=== PATIENT | female | born 1945 | race Caucasian/White ===

== ENCOUNTER 2017-09-02 17:39 | Inpatient (IN) | payer MEDICARE ==
[~2017-09-02] VITALS: Ht 167.6 cm; Wt 44.5 kg
[2017-09-02] VITALS (9 sets, daily range): BP systolic 131–178; BP diastolic 64–93; PULSE 116–133; RESP 18–25; TEMP 97.7–98.4; O2SAT 96–100
[~2017-09-02 17:39] MED LIST: ALBU1AER INH; ALPR0.5T3 PO; B COTAB3 PO; CEFT250T8 PO; DUONSOL2 NEB; FLUO10TA PO; LORT5TAB PO; LORT7.5T3 PO; MAGN250T13 PO; NITR0.4S SL; ROSU10 PO; SYMB80AE INH; TAB-TAB PO; THEO300T11 PO; Z.0.OXYGEN INH
[2017-09-02] MEDS ORDERED: PROPOFOL 1000 MG/100 ML INJ 100 ML ONE (17:45)
[2017-09-02] MEDS ORDERED: SENNOSIDES 8.6 MG TAB PO PRN (18:15)
[2017-09-02] MEDS ORDERED: ETOMIDATE 20 MG/10 ML VIAL IV PUSH ONE (18:15)
[2017-09-02] MEDS ORDERED: CHLORHEXIDINE GLUCONATE 2 % 1 PACK (2 CLOTHS) TOP PRN (18:15)
[2017-09-02] MEDS ORDERED: BISACODYL 10 MG SUPP RECTAL PRN (18:15)
[2017-09-02] MEDS ORDERED: PROPOFOL 1000 MG/100 ML INJ 100 ML IV PRN ×3 (18:15)
[2017-09-02] MEDS ORDERED: MISCELLANEOUS NURSING INFORMATION XX SCH (18:15)
[2017-09-02] MEDS ORDERED: SODIUM CHLORIDE 0.9% FLUSH 10 ML FLUSH IV FLUSH PRN ×2 (18:15)
[2017-09-02] MEDS ORDERED: SUCCINYLCHOLINE CHLORIDE 100 MG/5 ML SYRINGE IV PUSH ONE (18:15)
[2017-09-02] MEDS ORDERED: MAGNESIUM HYDROXIDE SUSP 30 ML CUP PO PRN (18:15)
[2017-09-02] MEDS ORDERED: LACTULOSE SYRUP 20 GM/30 ML CUP PO PRN (18:15)
[2017-09-02] MEDS ORDERED: methylPREDNISolone SOD SUCC 125 MG/2 ML VIAL IV PUSH ONE (18:30)
--- NOTE | 2017-09-02 18:40 | PD ---
HPI Chief Complaint: respiratory distress Time Seen by Provider: 18:02 Travel History International Travel<30 days: No Contact w/Intl Traveler<30days: No Traveled to known affect area: No History of Present Illness HPI 71-year-old female came to the emergency room with history of shortness of breath that's progressively worsening. Patient is from a [facility]. She has history of COPD and is progressively worsening for unknown amount of time. By the time she arrived patient was unresponsive. As per EMS they were unsuccessful in getting an IV line in her. Patient was in no condition to give any meaningful history. She is a full code I was told. [facility] Past Medical History Narrative Medical List of her past medical, surgical, social and family history is reviewed from the nursing note. Hx Anticoagulant Therapy: No Cancer: No Cardiovascular Problems: No Chemotherapy: No COPD: Yes Cerebrovascular Accident: No Diabetes: No Hepatitis: No Hiatal Hernia: No Respiratory: Yes (COPD) Thyroid Disease: No Past Surgical History Abdominal Surgery: Yes ([employer] HERNIA REP.) Hysterectomy: No Neurologic Surgery: Yes (THORACIC LAMI) Social History Alcohol Use: No Tobacco Use: No Substance Use: No Allergies-Medications (Allergen,Severity, Reaction): Coded Allergies: edilia (Verified Allergy, Severe, HIVES, 09/02/17) penicillin G (Verified Allergy, Severe, RASH, 09/02/17) prednisone (Verified Adverse Reaction, Severe, TRIGGERS BIPOLAR, 09/02/17) 09/02/17: Per pt's SO, pt has taken prednisone multiple times including just recently. It makes her act " a little bit bipolar but nothing too bad.' Comments List of her allergies reviewed from the nursing note. Reported Meds & Prescriptions Reported Meds & Active Scripts Active Reported Ceftin (Cefuroxime Axetil) 250 Mg Tab 250 Mg PO DAILY Lortab 7.5/500 (Acetaminophen/Hydrocodone Bitart) Tab 1 Tab PO Q3HPRN FOR PAIN Lortab 7.5/500 (Acetaminophen/Hydrocodone Bitart) Tab 1 Tab PO Q3HPRN FOR PAIN Ceftin (Cefuroxime Axetil) 250 Mg Tab 250 Mg PO QID Oxygen (O2) (Miscellaneous Medication) Inha 2.5 L INH 24/7 Nitrostat (Nitroglycerin) 0.4 Mg Subl 0.4 Mg SL PRN 1 TAB SL EVERY 5 MINS X 3 PRN CHEST PAIN B Complex (Vitamin B Complex) Tab 1 Cap PO DAILY Magnesium 250 Mg Tab 250 Mg PO BID Multivitamin (Multivitamins) 1 Tab Tab 1 Tab PO DAILY Symbicort (Budesonide/Formoterol Fumarate) 80 Mcg/4.5 Mcg Aer 2 Puff INH BID * SHAKE WELL BEFORE USE * Trevon-Dur (Theophylline) 300 Mg Tabcr 300 Mg PO BID Resp: Albuterol 2.5 Mg/Ipratropium 0.5 Mg (Albuterol/Ipratropium) 1 Amp Nebu 1 Amp NEB QID Proair Hfa (Albuterol Sulfate) 8.5 Gm Aero 2 Puff INH PRN * 2 PUFFS INHALED 15 MINUTES PRIOR TO EXERCISE * * SHAKE WELL BEFORE USE * Crestor (Rosuvastatin Calcium) 10 Mg Tab 10 Mg PO DAILY Lortab 5/500 (Acetaminophen/Hydrocodone Bitart) 5 Mg/500 Mg Tab 1 Tab PO Q8HPRN Alprazolam 0.5 Mg Tab 0.5 Mg PO QID Prozac (Fluoxetine HCl) 10 Mg Tab 10 Mg PO DAILY Narrative Medication List of home medications reviewed from the nursing note. Review of Systems ROS Limitations: Altered Mental Status Except as stated in HPI: all other systems reviewed are Neg Respiratory: Positive: Shortness of Breath Physical Exam Narrative GENERAL: Poorly responsive, in extremis SKIN: Diaphoretic. Multiple large ecchymosis and some skin tear HEAD: Atraumatic. Normocephalic. EYES: Pupils equal and round. No scleral icterus. No injection or drainage. ENT: No nasal bleeding or discharge. Mucous membranes pink and moist. NECK: Trachea midline. No JVD. CARDIOVASCULAR: Regular rate and rhythm. No murmur appreciated. RESPIRATORY: Decreased air entry bilaterally with end expiratory wheeze GASTROINTESTINAL: Abdomen soft, non-tender, nondistended. Hepatic and splenic margins not palpable. MUSCULOSKELETAL: No obvious deformities. No clubbing. No cyanosis. No edema. NEUROLOGICAL: GCS of 8 PSYCHIATRIC: Unable to assess Data Data Last Documented VS Vital Signs Date Time Temp Pulse Resp B/P (MAP) Pulse Ox O2 Delivery O2 Flow Rate FiO2 09/02/17 18:15 100 100 09/02/17 17:57 Nasal Cannula 3 09/02/17 17:45 97.7 133 25 178/93 (121) Orders Orders Propofol 1000 Mg/100 Ml Inj (Diprivan 10 (09/02/17 17:45) Admit To Inpatient (09/02/17 ) Code Status (09/02/17 18:10) Vital Signs (Adult) STEFFEN.Q1H (09/02/17 18:10) Activity Bed Rest (09/02/17 18:10) Elevate Head Of Bed (09/02/17 18:10) Diet Npo (09/02/17 Dinner) Sodium Chlor 0.9% 1000 Ml Inj (Ns 1000 M (09/02/17 18:10) Sodium Chloride 0.9% Flush (Ns Flush) (09/02/17 18:15) Sodium Chloride 0.9% Flush (Ns Flush) (09/02/17 21:00) Famotidine Inj (Pepcid Inj) (09/02/17 21:00) Albuterol-Ipratropium Neb (Duoneb Neb) (09/02/17 20:00) Albuterol-Ipratropium Neb (Duoneb Neb) (09/02/17 18:15) Complete Blood Count With Diff (09/03/17 04:00) Comprehensive Metabolic Panel (09/03/17 04:00) Sputum Culture And Gram Stain (09/02/17 18:10) Chest, Single Ap (09/03/17 ) Flavoring Machine Operator / Telemetry STEFFEN.Q8H (09/02/17 18:10) Enoxaparin Inj (Lovenox Inj) (09/02/17 20:00) Scd Bilateral/Knee High STEFFEN.BID (09/02/17 18:10) Rojas Bilateral/Knee High STEFFEN.QSHIFT (09/02/17 19:00) ^ Initiate Protocol (09/02/17 18:10) Instruction (09/02/17 18:10) Misc Nursing Information (09/02/17 18:15) Chlorhexidine 2% Cloth (Chlorhexidine 2% (09/03/17 04:00) Chlorhexidine 2% Cloth (Chlorhexidine 2% (09/02/17 18:15) Mrsa Pcr Surveillance (09/02/17 18:10) Docusate Sodium-Senna (Tierra-Colace) (09/02/17 21:00) Magnesium Hydroxide Liq (Milk Of Magnesi (09/02/17 18:15) Sennosides (Senokot) (09/02/17 18:15) Bisacodyl Supp (Dulcolax Supp) (09/02/17 18:15) Lactulose Liq (Lactulose Liq) (09/02/17 18:15) Propofol 1000 Mg/100 Ml Inj (Diprivan 10 (09/02/17 18:15) Neurological Rass Scale Q30MX2,Q2HX4,Q4H (09/02/17 18:10) Inpatient Certification (09/02/17 ) Methylprednisolone So Succ Inj (Solumedr (09/02/17 22:00) Levofloxacin 750 Mg Premix Inj (Levaquin (09/02/17 20:00) Elevate Head Of Bed (09/02/17 18:13) Chlorhexidine 0.12% Liq (Peridex 0.12% L (09/02/17 20:00) Resp Ventilation- Volume (09/02/17 ) Restraints Non-Violent STEFFEN.Q3H (09/02/17 18:13) Ventilator Weaning Readiness STEFFEN.DAILY@0800 (09/02/17 18:13) Propofol 1000 Mg/100 Ml Inj (Diprivan 10 (09/02/17 18:15) Neurological Rass Scale Q30MX2,Q2HX4,Q4H (09/02/17 18:13) Electrocardiogram (09/02/17 18:12) Complete Blood Count With Diff (09/02/17 18:12) Comprehensive Metabolic Panel (09/02/17 18:12) Creatine Kinase (Cpk) (09/02/17 18:12) Prothrombin Time / Inr (Pt) (09/02/17 18:12) Troponin I (09/02/17 18:12) Thyroid Stimulating Hormone (09/02/17 18:12) Urinalysis - C+S If Indicated (09/02/17 18:12) Lactic Acid Sepsis Protocol (09/02/17 18:12) Arterial Blood Gas (Abg) (09/02/17 18:12) Blood Culture (09/02/17 18:12) Ct Brain W/O Iv Contrast(Rout) (09/02/17 18:12) Blood Glucose (09/02/17 18:12) Ecg Monitoring (09/02/17 18:12) Iv Access Insert/Monitor (09/02/17 18:12) Oximetry (09/02/17 18:12) Sodium Chloride 0.9% Flush (Ns Flush) (09/02/17 18:15) Succinylcholine Inj (Quelicin Inj) (09/02/17 18:15) Etomidate Inj (Amidate Inj) (09/02/17 18:15) Propofol 1000 Mg/100 Ml Inj (Diprivan 10 (09/02/17 18:15) ^ Infusion (09/02/17 18:12) RASS (09/02/17 18:12) Neurological Rass Scale STEFFEN.Q2H (09/02/17 18:12) Admit Order (Ed Use Only) (09/02/17 18:18) Methylprednisolone So Succ Inj (Solumedr (09/02/17 18:30) Albuterol-Ipratropium Neb (Duoneb Neb) (09/02/17 18:30) Labs Laboratory Tests Test 09/02/17 16:45 White Blood Count 12.9 TH/MM3 Red Blood Count 3.52 MIL/MM3 Hemoglobin 11.5 GM/DL Hematocrit 33.4 % Mean Corpuscular Volume 94.9 FL Mean Corpuscular Hemoglobin 32.7 PG Mean Corpuscular Hemoglobin Concent 34.5 % Red Cell Distribution Width 16.9 % Platelet Count 422 TH/MM3 Mean Platelet Volume 8.2 FL Neutrophils (%) (Auto) 82.0 % Lymphocytes (%) (Auto) 12.6 % Monocytes (%) (Auto) 3.8 % Eosinophils (%) (Auto) 1.2 % Basophils (%) (Auto) 0.4 % Neutrophils # (Auto) 10.6 TH/MM3 Lymphocytes # (Auto) 1.6 TH/MM3 Monocytes # (Auto) 0.5 TH/MM3 Eosinophils # (Auto) 0.1 TH/MM3 Basophils # (Auto) 0.1 TH/MM3 CBC Comment DIFF FINAL Differential Comment Prothrombin Time 10.7 SEC Prothromb Time International Ratio 1.1 RATIO Blood Urea Nitrogen 15 MG/DL Creatinine 0.64 MG/DL Random Glucose 149 MG/DL Total Protein 6.5 GM/DL Albumin 2.6 GM/DL Calcium Level 8.1 MG/DL Alkaline Phosphatase 124 U/L Aspartate Amino Transf (AST/SGOT) 38 U/L Alanine Aminotransferase (ALT/SGPT) 30 U/L Total Bilirubin 0.4 MG/DL Sodium Level 137 MEQ/L Potassium Level 5.5 MEQ/L Chloride Level 102 MEQ/L Carbon Dioxide Level 30.1 MEQ/L Anion Gap 5 MEQ/L Estimat Glomerular Filtration Rate 92 ML/MIN Lactic Acid Level 1.0 mmol/L Total Creatine Kinase 77 U/L Troponin I 0.03 NG/ML Thyroid Stimulating Hormone 3rd Gen 6.440 uIU/ML MDM Medical Decision Making Medical Screen Exam Complete: Yes Emergency Medical Condition: Yes Medical Record Reviewed: Yes Differential Diagnosis Impending respiratory failure, acute COPD exacerbation, pneumonia, CHF Narrative Course 6:38 PM I rapidly made the decision to intubate the patient. Please refer to my procedure note. Patient tolerated the procedure well. I discussed the case with the fermenter operator who has accepted the patient. Awaiting for labs and chest x-ray. Critical Care Narrative Aggregate critical care time was 45 minutes. Time to perform other separately billable procedures was not included in the critical care time. My time did not include minutes spent treating any other patients simultaneously or on activities that did not directly contribute to the patient's treatment. The services I provided to this patient were to treat and/or prevent clinically significant deterioration that could result in: Respiratory distress, impending respiratory failure, ventilator management I provided critical care services requiring my management, as noted below: Chart data review, documentation time, medication orders and management, vital sign assessments/reviewing monitor data, ordering and reviewing lab tests, ordering and interpreting/reviewing x-rays and diagnostic studies, care of the patient and discussion of the patient with the admitting physicians. Procedures Procedure Narrative After the risks and benefits were discussed the following procedure was performed: INTUBATION: The patient was put in optimal position for the procedure. Rapid sequence intubation was initiated by me using 20 milligrams of etomidate IV and 100 milligrams of succinylcholine IV. The patient was intubated with a 7.5 cuffed endotracheal tube. Tube placement was confirmed by visualization of the tube and balloon passing through the cords, capnometry and subsequent chest x-ray. Breath sounds were equal and well aerated bilaterally postintubation. No breath sounds over stomach. Patient tolerated procedure well. EKG Prior to Arrival: No Physician Communication Physician Communication Dr. Nelson Diagnosis Primary Impression: Respiratory failure Qualified Codes: J96.00 - Acute respiratory failure, unspecified whether with hypoxia or hypercapnia Additional Impressions: Acute exacerbation of COPD with asthma Altered mental status Qualified Codes: R40.1 - Stupor Admitting Information Admitting Physician Requests: Randi Bautista MD Sep 02, 2017 18:40
[2017-09-02] MEDS ORDERED: SODIUM CHLOR 0.9% 1000 ML INJ 1,000 ML IV ONE (19:00)
[2017-09-02 19:05] LABS: BLOOD GAS CARBOXYHEMOGLOBIN 0.9 % (0-4); BLOOD GAS HCO3 29 mmol/L (22-26); BLOOD GAS METHEMOGLOBIN 0.7 % (0-2); BLOOD GAS O2 HGB SATURATION 92 % (90-100); BLOOD GAS OXYGEN CONTENT 12.2 Vol % (12.0-20.0); BLOOD GAS PCO2 75 mmHg (38-42); BLOOD GAS PO2 81 mmHG (61-120); BLOOD GAS TOTAL HGB 9.4 G/DL (12.0-16.0)
[2017-09-02 19:06] LABS: CRITICAL VALUE YES; DRAW SITE LT RADIAL; FIO2 100 %; NUMBER OF ARTERIAL PUNCTURES 1; OXYGEN DEVICE VENTILATOR; STAT YES; ULNAR PULSE PRESENT; VENT SETTINGS A/C 14/500/PEEP0/100
[2017-09-02 19:31] LABS: AUTOMATED NEUTROPHIL # 10.6 TH/MM3 (1.8-7.7); BASOPHIL # 0.1 TH/MM3 (0-0.2); BASOPHIL % 0.4 % (0.0-2.0); EOSINOPHIL # 0.1 TH/MM3 (0-0.4); EOSINOPHIL % 1.2 % (0.0-4.0); HEMATOCRIT 33.4 % (35.0-46.0); HEMO FLAGS DIFF FINAL; LYMPH % 12.6 % (9.0-44.0); LYMPHOCYTE # 1.6 TH/MM3 (1.0-4.8); MEAN CELL VOLUME 94.9 FL (80.0-100.0); MEAN CORPUSCULAR HEMOGLOBIN 32.7 PG (27.0-34.0); MEAN CORPUSCULAR HGB CONC 34.5 % (32.0-36.0); MONO % 3.8 % (0.0-8.0); PLATELET COUNT 422 TH/MM3 (150-450); RED BLOOD COUNT 3.52 MIL/MM3 (4.00-5.30); RED CELL DISTRIBUTION WIDTH 16.9 % (11.6-17.2); WHITE BLOOD COUNT 12.9 TH/MM3 (4.0-11.0)
[2017-09-02 19:43] LABS: INTERNATIONAL NORMALIZED RATIO 1.1 RATIO; PROTHROMBIN TIME - PATIENT 10.7 SEC (9.8-11.6)
[2017-09-02] MEDS ORDERED: fentaNYL DRIP 250 ML IV PRN (19:45)
--- NOTE | 2017-09-02 19:49 | HHI.HP ---
HPI Service Critical Care Medicine Primary Care Physician Unknown Admission Diagnosis respiratory failure, COPD exacerbation Diagnosis: Travel History International Travel<30 Days: No Contact w/Intl Traveler <30 Da: No Traveled to Known Affected Are: No History of Present Illness 71-year-old female came to the emergency room with history of shortness of breath that's progressively worsening. Patient is from a shelter. She has history of COPD and is progressively worsening for unknown amount of time. By the time she arrived to emergency department she became unresponsive. She was intubated by ED attending for an airway protection and severe hypoxemia. Review of Systems ROS Unobtainable patient is intubated Past Family Social History Allergies: Coded Allergies: edilia (Verified Allergy, Severe, HIVES, 09/02/17) penicillin G (Verified Allergy, Severe, RASH, 09/02/17) prednisone (Verified Adverse Reaction, Severe, TRIGGERS BIPOLAR, 09/02/17) 09/02/17: Per pt's SO, pt has taken prednisone multiple times including just recently. It makes her act " a little bit bipolar but nothing too bad.' Past Medical History Unobtainable, per medical record to review: COPD: Yes Past Surgical History Abdominal Surgery: Yes ([employer] HERNIA REP.) Neurologic Surgery: Yes (THORACIC LAMI) Reported Medications Reported Meds & Active Scripts Active Reported Ceftin (Cefuroxime Axetil) 250 Mg Tab 250 Mg PO DAILY Lortab 7.5/500 (Acetaminophen/Hydrocodone Bitart) Tab 1 Tab PO Q3HPRN FOR PAIN Lortab 7.5/500 (Acetaminophen/Hydrocodone Bitart) Tab 1 Tab PO Q3HPRN FOR PAIN Ceftin (Cefuroxime Axetil) 250 Mg Tab 250 Mg PO QID Oxygen (O2) (Miscellaneous Medication) Inha 2.5 L INH 24/7 Nitrostat (Nitroglycerin) 0.4 Mg Subl 0.4 Mg SL PRN 1 TAB SL EVERY 5 MINS X 3 PRN CHEST PAIN B Complex (Vitamin B Complex) Tab 1 Cap PO DAILY Magnesium 250 Mg Tab 250 Mg PO BID Multivitamin (Multivitamins) 1 Tab Tab 1 Tab PO DAILY Symbicort (Budesonide/Formoterol Fumarate) 80 Mcg/4.5 Mcg Aer 2 Puff INH BID * SHAKE WELL BEFORE USE * Trevon-Dur (Theophylline) 300 Mg Tabcr 300 Mg PO BID Resp: Albuterol 2.5 Mg/Ipratropium 0.5 Mg (Albuterol/Ipratropium) 1 Amp Nebu 1 Amp NEB QID Proair Hfa (Albuterol Sulfate) 8.5 Gm Aero 2 Puff INH PRN * 2 PUFFS INHALED 15 MINUTES PRIOR TO EXERCISE * * SHAKE WELL BEFORE USE * Crestor (Rosuvastatin Calcium) 10 Mg Tab 10 Mg PO DAILY Lortab 5/500 (Acetaminophen/Hydrocodone Bitart) 5 Mg/500 Mg Tab 1 Tab PO Q8HPRN Alprazolam 0.5 Mg Tab 0.5 Mg PO QID Prozac (Fluoxetine HCl) 10 Mg Tab 10 Mg PO DAILY Active Ordered Medications Current Medications Medications (Trade) Dose Ordered Sig/Joselyn Route PRN Reason Start Time Stop Time Status Last Admin Dose Admin Sodium Chloride 1,000 ml @ 84 mls/hr [id number] IV 09/02/17 18:10 Sodium Chloride (NS Flush) 2 ml UNSCH PRN IV FLUSH FLUSH AFTER USING IV ACCESS 09/02/17 18:15 Sodium Chloride (NS Flush) 2 ml BID IV FLUSH 09/02/17 21:00 Famotidine (Pepcid Inj) 20 mg Q12HR IV PUSH 09/02/17 21:00 Albuterol/ Ipratropium (Duoneb Neb) 1 ampule Q4HR NEB INH 09/02/17 20:00 Albuterol/ Ipratropium (Duoneb Neb) 1 ampule Q2HR NEB PRN INH WHEEZING 09/02/17 18:15 Enoxaparin Sodium (Lovenox Inj) 40 mg Q24H SQ 09/02/17 20:00 Miscellaneous Information 1 [id number] 09/02/17 18:15 Chlorhexidine Gluconate (Chlorhexidine 2% Cloth) 3 pack Taper DAILY@04 TOP 09/03/17 04:00 08/30/18 03:59 Chlorhexidine Gluconate (Chlorhexidine 2% Cloth) 3 pack UNSCH PRN TOP HYGIENIC CARE 09/02/17 18:15 Senna/Docusate Sodium (Tierra-Colace) 1 tab BID PO 09/02/17 21:00 Magnesium Hydroxide (Milk Of Magnesia Liq) 30 ml Q12H PRN PO Mild constipation 09/02/17 18:15 Sennosides (Senokot) 17.2 mg Q12H PRN PO Moderate constipation 09/02/17 18:15 Bisacodyl (Dulcolax Supp) 10 mg DAILY PRN RECTAL SEVERE CONSITIPATION 09/02/17 18:15 Lactulose (Lactulose Liq) 30 ml DAILY PRN PO SEVERE CONSITIPATION 09/02/17 18:15 Propofol 100 ml @ 1.8 mls/hr TITRATE PRN IV SEDATION 09/02/17 18:15 Methylprednisolone Sodium Succinate (SoluMEDROL INJ) 60 mg Q8HR IV PUSH 09/02/17 22:00 Levofloxacin/ Dextrose 150 ml @ 100 mls/hr Q24H IV 09/02/17 20:00 Chlorhexidine Gluconate (Peridex 0.12% Liq) 15 ml BID@08,20 MT 09/02/17 20:00 Midazolam HCl 100 ml @ 2 mls/hr TITRATE PRN IV SEDATION 09/02/17 19:45 09/02/17 19:50 Fentanyl Citrate 250 ml @ 5 mls/hr TITRATE PRN IV SEDATION 09/02/17 19:45 09/02/17 19:49 Family History Unobtainable Social History Social History Alcohol Use: No Tobacco Use: No Substance Use: No Physical Exam Vital Signs Vital Signs Date Time Temp Pulse Resp B/P (MAP) Pulse Ox O2 Delivery O2 Flow Rate FiO2 09/02/17 18:55 97.7 133 18 178/93 (121) 97 09/02/17 18:53 96 100 09/02/17 18:35 100 100 09/02/17 18:15 100 100 09/02/17 18:03 100 100 09/02/17 17:55 100 09/02/17 17:45 97.7 133 25 178/93 (121) 97 Non-Rebreather 15.00 09/02/17 17:45 97 Non-Rebreather 15.00 09/02/17 17:45 133 25 97 Non-Rebreather 15.00 Physical Exam GENERAL: Poorly responsive, sedated and intubated female SKIN: Diaphoretic. Multiple large ecchymosis and some skin tear HEAD: Atraumatic. Normocephalic. EYES: Pupils equal and round. No scleral icterus. No injection or drainage. ENT: No nasal bleeding or discharge. Mucous membranes pink and moist. NECK: Trachea midline. No JVD. CARDIOVASCULAR: Regular rate and rhythm. No murmur appreciated. RESPIRATORY: Decreased air entry bilaterally with end expiratory wheeze GASTROINTESTINAL: Abdomen soft, non-tender, nondistended. Hepatic and splenic margins not palpable. MUSCULOSKELETAL: No obvious deformities. No clubbing. No cyanosis. No edema. NEUROLOGICAL: Sedated and intubated Laboratory Laboratory Tests Test 09/02/17 16:45 09/02/17 18:41 White Blood Count 12.9 Red Blood Count 3.52 Hemoglobin 11.5 Hematocrit 33.4 Mean Corpuscular Volume 94.9 Mean Corpuscular Hemoglobin 32.7 Mean Corpuscular Hemoglobin Concent 34.5 Red Cell Distribution Width 16.9 Platelet Count 422 Mean Platelet Volume 8.2 Neutrophils (%) (Auto) 82.0 Lymphocytes (%) (Auto) 12.6 Monocytes (%) (Auto) 3.8 Eosinophils (%) (Auto) 1.2 Basophils (%) (Auto) 0.4 Neutrophils # (Auto) 10.6 Lymphocytes # (Auto) 1.6 Monocytes # (Auto) 0.5 Eosinophils # (Auto) 0.1 Basophils # (Auto) 0.1 CBC Comment DIFF FINAL Differential Comment Prothrombin Time 10.7 Prothromb Time International Ratio 1.1 Lactic Acid Level 1.0 Blood Gas Puncture Site LT RADIAL Blood Gas Patient Temperature 37.0 Blood Gas HCO3 29 Blood Gas Base Excess 2.0 Blood Gas Oxygen Saturation 92 Arterial Blood pH 7.21 Arterial Blood Partial Pressure CO2 75 Arterial Blood Partial Pressure O2 81 Arterial Blood Oxygen Content 12.2 Arterial Blood Carboxyhemoglobin 0.9 Arterial Blood Methemoglobin 0.7 Blood Gas Hemoglobin 9.4 Oxygen Delivery Device VENTILATOR Blood Gas Ventilator Setting A/C 14/500/PEEP0/100 Blood Gas Inspired Oxygen 100 Result Diagram: 09/02/17 1645 Septic Shock Reassessment Septic shock perfusion: reassessment completed Caprini VTE Risk Assessment Caprini VTE Risk Assessment: Mod/High Risk (score >= 2) Caprini Risk Assessment Model Point Value = 1 Point Value = 2 Point Value = 3 Point Value = 5 Age 41-60 Minor surgery BMI > 25 kg/m2 Swollen legs Varicose veins or History of unexplained or recurrent spontaneous Oral contraceptives or hormone replacement Sepsis (< 1 month) Serious lung disease, including pneumonia (< 1 month) Abnormal pulmonary function Acute myocardial infarction Congestive heart failure (< 1 month) History of inflammatory bowel disease Medical patient at bed rest Age 61-74 Arthroscopic surgery Major open surgery (> 45 min) Laparoscopic surgery (> 45 min) Malignancy Confined to bed (> 72 hours) Immobilizing plaster cast Central venous access Age >= 75 History of VTE Family history of VTE Factor V Leiden Prothrombin [id number] Lupus anticoagulant Anticardiolipin antibodies Elevated serum homocysteine Heparin-induced thrombocytopenia Other congenital or acquired thrombophilia Stroke (< 1 month) Elective arthroplasty Hip, pelvis, or leg fracture Acute spinal cord injury (< 1 month) Prophylaxis Regimen Total Risk Factor Score Risk Level Prophylaxis Regimen 0-1 Low Early ambulation 2 Moderate Order ONE of the following: *Sequential Compression Device (SCD) *Heparin 5000 units SQ BID 3-4 Higher Order ONE of the following medications: *Heparin 5000 units SQ TID *Enoxaparin/Lovenox 40 mg SQ daily (WT < 150 kg, CrCl > 30 mL/min) *Enoxaparin/Lovenox 30 mg SQ daily (WT < 150 kg, CrCl > 10-29 mL/min) *Enoxaparin/Lovenox 30 mg SQ BID (WT < 150 kg, CrCl > 30 mL/min) AND/OR *Sequential Compression Device (SCD) 5 or more Highest Order ONE of the following medications: *Heparin 5000 units SQ TID (Preferred with Epidurals) *Enoxaparin/Lovenox 40 mg SQ daily (WT < 150 kg, CrCl > 30 mL/min) *Enoxaparin/Lovenox 30 mg SQ daily (WT < 150 kg, CrCl > 10-29 mL/min) *Enoxaparin/Lovenox 30 mg SQ BID (WT < 150 kg, CrCl > 30 mL/min) AND *Sequential Compression Device (SCD) Assessment and Plan Assessment and Plan Respiratory failure - Hypercapnic respiratory acidosis - Underlying COPD - Broad-spectrum antibiotics - IV steroids - DuoNeb scheduled and when necessary - Vent bundle - SBT daily when acidosis improved - Follow-up cultures Hyperkalemia - No EKG changes - Normal renal functions - IV fluid hydration - Avoid nephrotoxins DVT GI prophylaxis - Teds SCDs - Subcutaneous heparin and Pepcid Critical Care: The total critical care time was 35 minutes. Time to perform other separately billable procedures was not included in the critical care time. Sae Good MD Sep 02, 2017 19:48
[2017-09-02] MEDS: MIDAZOLAM 100 MG/100 ML INJ 100 ML IV PRN (19:50)
[2017-09-02 19:53] LABS: ALT (GPT) 30 U/L (10-53)
[2017-09-02] MEDS ORDERED: CHLORHEXIDINE 0.12% (ORAL KIT) 15 ML CUP MT SCH (20:00)
[2017-09-02] MEDS: CHLORHEXIDINE 0.12% (ORAL KIT) 15 ML CUP MT SCH (20:00)
[2017-09-02 20:07] LABS: ALKALINE PHOSPHATASE 124 U/L (45-117); ANION GAP 5 MEQ/L (5-15); AST (GOT) 38 U/L (15-37); BICARBONATE 30.1 MEQ/L (21.0-32.0); BLOOD UREA NITROGEN 15 MG/DL (7-18); CHLORIDE 102 MEQ/L (98-107); CREATINE KINASE 77 U/L (26-192); GLOMERULAR FILTRATION RATE 92 ML/MIN (>89); POTASSIUM 5.5 MEQ/L (3.5-5.1); SODIUM (NA) 137 MEQ/L (136-145); TOTAL BILIRUBIN ADULT 0.4 MG/DL (0.2-1.0)
[2017-09-02 20:29] LABS: BACTERIA, URINE RARE /hpf; BLOOD, URINE MOD (NEG); GLUCOSE,URINE NEG (NEG); HYALINE CAST, URINE 76 /lpf (RARE); KETONE, URINE NEG (NEG); MUCUS URINE FEW /lpf (OCC); NITRITE,URINE NEG (NEG); SQUAMOUS EPITHELIAL CELL URINE 8 /hpf (0-5); TRANSITIONAL EPI CELLS, URINE 3 /hpf; URINE COLOR YELLOW (YELLW/STRAW)
[2017-09-02 20:30] LABS: COMMENT (UR) CATH-CULTURE IND; CULTURE IF INDICATED CATH CULTURE IND
[2017-09-02] MEDS ORDERED: Vancomycin Consult Pharmacy 1 EA OTHER SCH (20:30)
[2017-09-02] MEDS: RESP: ALBUTEROL 2.5 MG/IPRATROPIUM 0.5 MG NEB (SCH) INH ×2 (20:37→20:38)
[2017-09-02] MEDS: DOCUSATE SODIUM 50 MG/SENNA 8.6 MG TAB PO SCH (21:00)
[2017-09-02] MEDS: SODIUM CHLOR 0.9% 1000 ML INJ 1,000 ML IV SCH (21:11)
[2017-09-02] MEDS: LEVOFLOXACIN 750 MG PREMIX INJ 150 ML IV SCH (21:13)
[2017-09-02] MEDS: ENOXAPARIN SODIUM 40 MG/0.4 ML SYRINGE SQ SCH (21:14)
[2017-09-02] MEDS: FAMOTIDINE 20 MG/2 ML VIAL IV PUSH SCH (21:36)
[2017-09-02] MEDS ORDERED: IOHEXOL 350 MG/ML 10 ML VIAL (for RAD DIAG) IVCONTRAST ONE (21:54)
[2017-09-02] MEDS: methylPREDNISolone SOD SUCC 125 MG/2 ML VIAL IV PUSH SCH (22:00)
--- NOTE | 2017-09-02 22:02 | RADRPT ---
EXAM DATE/TIME: 09/02/2017 21:24 [facility] COMPARISON: No previous studies available for comparison. INDICATIONS : Altered mental status. RADIATION DOSE: 69.15 CTDIvol (mGy) MEDICAL HISTORY : Chronic obstructive pulmonary disease. SURGICAL HISTORY : Cholecystectomy. Hernia ENCOUNTER: Initial ACUITY: 1 day PAIN SCALE: Non-responsive LOCATION: cranial TECHNIQUE: Multiple contiguous axial images were obtained of the head. Using automated exposure control and adj ustment of the mA and/or kV according to patient size, radiation dose was kept as low as reasonably a chievable to obtain optimal diagnostic quality images. DICOM format image data is available electro nically for review and comparison. FINDINGS: CEREBRUM: The ventricles are normal for age. No evidence of midline shift, mass lesion, hemorrhage or acute in farction. No extra-axial fluid collections are seen. POSTERIOR FOSSA: The cerebellum and brainstem are intact. The 4th ventricle is midline. The cerebellopontine angle i s unremarkable. EXTRACRANIAL: The visualized portion of the orbits is intact. SKULL: The calvaria is intact. No evidence of skull fracture. CONCLUSION: Normal examination for a patient of this age. Aaron Henry MD on September 02, 2017 at 21:59 Board Certified Radiologist. This report was verified electronically.
--- NOTE | 2017-09-02 22:04 | RADRPT ---
EXAM DATE/TIME: 09/02/2017 21:27 [facility] COMPARISON: No previous studies available for comparison. INDICATIONS : Respiratory arrest. Evaluate for emboli. IV CONTRAST: 60 cc Omnipaque 350 (iohexol) IV RADIATION DOSE: 14.23 CTDIvol (mGy) MEDICAL HISTORY : Chronic obstructive pulmonary disease. SURGICAL HISTORY : Cholecystectomy. Hernia ENCOUNTER: Initial ACUITY: 1 day PAIN SCALE: 10/10 LOCATION: chest This would be considered an anaphylactic reaction to contrast and patient should be appropriately med icated TECHNIQUE: Volumetric scanning of the chest was performed using a pulmonary embolism protocol MIP images were re constructed. Using automated exposure control and adjustment of the mA and/or kV according to patien t size, radiation dose was kept as low as reasonably achievable to obtain optimal diagnostic quality images. DICOM format image data is available electronically for review and comparison. Follow-up recommendations for detected pulmonary nodules are based at a minimum on nodule size and pa tient risk factors according to Fleischner Society Guidelines. FINDINGS: Mild to moderate bilateral pleural effusions. Compressive atelectasis in both lungs. No filling defec ts to suggest pulmonary embolic disease. Endotracheal tube in good position. NG enters stomach. Mild edema pattern. Mild emphysema. No acute findings in the visualized upper abdomen. Previous ventral he rnia repair. CONCLUSION: 1. Negative for pulmonary embolus. 2. Small to moderate bilateral pleural effusions with compressive atelectasis in the lungs. Mild inte rstitial edema pattern. Aaron Henry MD on September 02, 2017 at 22:00 Board Certified Radiologist. This report was verified electronically.
[2017-09-03] VITALS (20 sets, daily range): BP systolic 105–119; BP diastolic 55–65; PULSE 91–142; RESP 12–22; TEMP 97.6–98.7; O2SAT 88–100
[2017-09-03] MEDS: SODIUM CHLORIDE 0.9% FLUSH 10 ML FLUSH IV FLUSH SCH ×3 (00:01→20:28)
[2017-09-03] MEDS: CHLORHEXIDINE GLUCONATE 2 % 1 PACK (2 CLOTHS) TOP SCH (00:02)
[2017-09-03] MEDS: VANCOMYCIN 1,000 MG/NS 250 ML IV SCH ×6 (00:02→23:53)
[2017-09-03] MEDS: RESP: ALBUTEROL 2.5 MG/IPRATROPIUM 0.5 MG NEB (SCH) INH ×5 (01:47→20:55)
--- NOTE | 2017-09-03 04:35 | RADRPT ---
EXAM DATE/TIME: 09/03/2017 03:33 [facility] COMPARISON: CHEST SINGLE AP, January 25, 2016, 14:29. INDICATIONS : Short of breath. MEDICAL HISTORY : Chronic obstructive pulmonary disease. SURGICAL HISTORY : Cholecystectomy. Hernia ENCOUNTER: Subsequent ACUITY: 1 day PAIN SCORE: 0/10 LOCATION: Bilateral chest FINDINGS: ET and gastric tubes in good position. There is consolidation in the left lower lobe with loss of de lineation of the left hemidiaphragm. Some hazy opacity is present in the lower right chest without p arenchymal opacity suggesting pleural effusion. The heart is normal in size. CONCLUSION: Left lower lobe consolidation. Probable bilateral pleural effusions. Clemente Kiser MD on September 03, 2017 at 4:33 Board Certified Radiologist. This report was verified electronically.
[2017-09-03] MEDS ORDERED: MIDAZOLAM 100 MG/100 ML INJ 100 ML ONE (05:28)
[2017-09-03 06:32] LABS: BLOOD GAS CARBOXYHEMOGLOBIN 0.6 % (0-4); BLOOD GAS HCO3 26 mmol/L (22-26); BLOOD GAS METHEMOGLOBIN 1.2 % (0-2); BLOOD GAS O2 HGB SATURATION 97 % (90-100); BLOOD GAS OXYGEN CONTENT 13.6 Vol % (12.0-20.0); BLOOD GAS PCO2 48 mmHg (38-42); BLOOD GAS PO2 151 mmHg (61-120); BLOOD GAS TOTAL HGB 9.8 G/DL (12.0-16.0); TEMP CORR TO 98.6
[2017-09-03 06:33] LABS: CRITICAL VALUE NO; FIO2 60 %; OXYGEN DEVICE VENTILATOR
[2017-09-03 06:34] LABS: DRAW SITE RT RADIAL; NUMBER OF ARTERIAL PUNCTURES 1; STAT NO; ULNAR PULSE PRESENT
[2017-09-03] MEDS: methylPREDNISolone SOD SUCC 125 MG/2 ML VIAL IV PUSH SCH ×3 (06:44→20:28)
[2017-09-03] MEDS: FAMOTIDINE 20 MG/2 ML VIAL IV PUSH SCH ×2 (08:22→20:28)
[2017-09-03] MEDS: SODIUM CHLOR 0.9% 1000 ML INJ 1,000 ML IV SCH (08:22)
[2017-09-03] MEDS: CHLORHEXIDINE 0.12% (ORAL KIT) 15 ML CUP MT SCH ×2 (08:22→20:00)
[2017-09-03] MEDS: DOCUSATE SODIUM 50 MG/SENNA 8.6 MG TAB PO SCH ×2 (08:23→20:28)
[2017-09-03 09:35] LABS: ALT (GPT) 24 U/L (10-53); ANION GAP 8 MEQ/L (5-15); AST (GOT) 34 U/L (15-37); BICARBONATE 25.3 MEQ/L (21.0-32.0); CHLORIDE 106 MEQ/L (98-107); GLOMERULAR FILTRATION RATE 125 ML/MIN (>89); MAGNESIUM 1.7 MG/DL (1.5-2.5); POTASSIUM 5.3 MEQ/L (3.5-5.1); SODIUM (NA) 139 MEQ/L (136-145)
[2017-09-03 09:38] LABS: ALKALINE PHOSPHATASE 111 U/L (45-117); TOTAL BILIRUBIN ADULT 0.4 MG/DL (0.2-1.0)
[2017-09-03 09:39] LABS: BLOOD UREA NITROGEN 12 MG/DL (7-18)
--- NOTE | 2017-09-03 10:27 | HHI.CCPN ---
Subjective Remarks/Hospital Course 71-year-old female came to the emergency room with history of shortness of breath that's progressively worsening. Patient is from a assisted. She has history of COPD and is progressively worsening for unknown amount of time. By the time she arrived to emergency department she became unresponsive. She was intubated by ED attending for an airway protection and severe hypoxemia. 09/03 Patient remains sedated and intubated. Objective Vital Signs Date Time Temp Pulse Resp B/P (MAP) Pulse Ox O2 Delivery O2 Flow Rate FiO2 09/03/17 08:25 100 40 09/03/17 08:05 105 09/03/17 08:00 97.6 18 119/63 (81) 09/02/17 17:45 Non-Rebreather 15.00 Intake and Output 09/03/17 09/03/17 09/04/17 08:00 16:00 00:00 Intake Total 1365 ml Output Total 450 ml Balance 915 ml Result Diagram: 09/02/17 1645 09/03/17 0825 Other Results Laboratory Tests Test 09/02/17 16:45 09/02/17 18:41 09/02/17 19:55 09/02/17 22:16 White Blood Count 12.9 TH/MM3 Red Blood Count 3.52 MIL/MM3 Hemoglobin 11.5 GM/DL Hematocrit 33.4 % Mean Corpuscular Volume 94.9 FL Mean Corpuscular Hemoglobin 32.7 PG Mean Corpuscular Hemoglobin Concent 34.5 % Red Cell Distribution Width 16.9 % Platelet Count 422 TH/MM3 Mean Platelet Volume 8.2 FL Neutrophils (%) (Auto) 82.0 % Lymphocytes (%) (Auto) 12.6 % Monocytes (%) (Auto) 3.8 % Eosinophils (%) (Auto) 1.2 % Basophils (%) (Auto) 0.4 % Neutrophils # (Auto) 10.6 TH/MM3 Lymphocytes # (Auto) 1.6 TH/MM3 Monocytes # (Auto) 0.5 TH/MM3 Eosinophils # (Auto) 0.1 TH/MM3 Basophils # (Auto) 0.1 TH/MM3 CBC Comment DIFF FINAL Differential Comment Prothrombin Time 10.7 SEC Prothromb Time International Ratio 1.1 RATIO Blood Urea Nitrogen 15 MG/DL Creatinine 0.64 MG/DL Random Glucose 149 MG/DL Total Protein 6.5 GM/DL Albumin 2.6 GM/DL Calcium Level 8.1 MG/DL Alkaline Phosphatase 124 U/L Aspartate Amino Transf (AST/SGOT) 38 U/L Alanine Aminotransferase (ALT/SGPT) 30 U/L Total Bilirubin 0.4 MG/DL Sodium Level 137 MEQ/L Potassium Level 5.5 MEQ/L Chloride Level 102 MEQ/L Carbon Dioxide Level 30.1 MEQ/L Anion Gap 5 MEQ/L Estimat Glomerular Filtration Rate 92 ML/MIN Lactic Acid Level 1.0 mmol/L Total Creatine Kinase 77 U/L Troponin I 0.03 NG/ML Thyroid Stimulating Hormone 3rd Gen 6.440 uIU/ML Blood Gas Puncture Site LT RADIAL Blood Gas Patient Temperature 37.0 Blood Gas HCO3 29 mmol/L Blood Gas Base Excess 2.0 mmol/L Blood Gas Oxygen Saturation 92 % Arterial Blood pH 7.21 Arterial Blood Partial Pressure CO2 75 mmHg Arterial Blood Partial Pressure O2 81 mmHG Arterial Blood Oxygen Content 12.2 Vol % Arterial Blood Carboxyhemoglobin 0.9 % Arterial Blood Methemoglobin 0.7 % Blood Gas Hemoglobin 9.4 G/DL Oxygen Delivery Device VENTILATOR Blood Gas Ventilator Setting A/C 14/500/PEEP0/100 Blood Gas Inspired Oxygen 100 % Urine Color YELLOW Urine Turbidity HAZY Urine pH 6.0 Urine Specific [place] 1.022 Urine Protein 30 mg/dL Urine Glucose (UA) NEG mg/dL Urine Ketones NEG mg/dL Urine Occult Blood MOD Urine Nitrite NEG Urine Bilirubin NEG Urine Urobilinogen 2.0 MG/DL Urine Leukocyte Esterase NEG Urine RBC 57 /hpf Urine WBC 8 /hpf Urine Squamous Epithelial Cells 8 /hpf Urine Transitional Epithelial Cells 3 /hpf Urine Amorphous Sediment RARE Urine Bacteria RARE /hpf Urine Hyaline Casts 76 /lpf Urine Mucus FEW /lpf Microscopic Urinalysis Comment CATH-CULTURE IND Nasal Screen MRSA (PCR) MRSA NOT DETECTED Test 09/03/17 06:24 09/03/17 08:25 Blood Gas Puncture Site RT RADIAL Blood Gas Patient Temperature 98.6 Blood Gas HCO3 26 mmol/L Blood Gas Base Excess 1.0 mmol/L Blood Gas Oxygen Saturation 97 % Arterial Blood pH 7.35 Arterial Blood Partial Pressure CO2 48 mmHg Arterial Blood Partial Pressure O2 151 mmHg Arterial Blood Oxygen Content 13.6 Vol % Arterial Blood Carboxyhemoglobin 0.6 % Arterial Blood Methemoglobin 1.2 % Blood Gas Hemoglobin 9.8 G/DL Oxygen Delivery Device VENTILATOR Blood Gas Ventilator Setting Blood Gas Inspired Oxygen 60 % Blood Urea Nitrogen 12 MG/DL Creatinine 0.49 MG/DL Random Glucose 90 MG/DL Total Protein 5.7 GM/DL Albumin 2.3 GM/DL Calcium Level 8.2 MG/DL Phosphorus Level 3.9 MG/DL Magnesium Level 1.7 MG/DL Alkaline Phosphatase 111 U/L Aspartate Amino Transf (AST/SGOT) 34 U/L Alanine Aminotransferase (ALT/SGPT) 24 U/L Total Bilirubin 0.4 MG/DL Sodium Level 139 MEQ/L Potassium Level 5.3 MEQ/L Chloride Level 106 MEQ/L Carbon Dioxide Level 25.3 MEQ/L Anion Gap 8 MEQ/L Estimat Glomerular Filtration Rate 125 ML/MIN Imaging Last Impressions Chest X-Ray 09/03/17 0000 Signed Impressions: Service Date/Time: Sunday, September 03, 2017 03:33 - CONCLUSION: Left lower lobe consolidation. Probable bilateral pleural effusions. Clemente Kiser MD Head CT 09/02/17 1812 Signed Impressions: Service Date/Time: Saturday, September 02, 2017 21:24 - CONCLUSION: Normal examination for a patient of this age. Aaron Henry MD CT Angiography 09/02/17 0000 Signed Impressions: Service Date/Time: Saturday, September 02, 2017 21:27 - CONCLUSION: 1. Negative for pulmonary embolus. 2. Small to moderate bilateral pleural effusions with compressive atelectasis in the lungs. Mild interstitial edema pattern. Aaron Henry MD Objective Remarks GENERAL: Poorly responsive, sedated and intubated female SKIN: Diaphoretic. Multiple large ecchymosis and some skin tear HEAD: Atraumatic. Normocephalic. EYES: Pupils equal and round. No scleral icterus. No injection or drainage. ENT: No nasal bleeding or discharge. Mucous membranes pink and moist. NECK: Trachea midline. No JVD. CARDIOVASCULAR: Regular rate and rhythm. No murmur appreciated. RESPIRATORY: Decreased air entry bilaterally GASTROINTESTINAL: Abdomen soft, non-tender, nondistended. Hepatic and splenic margins not palpable. MUSCULOSKELETAL: No obvious deformities. No clubbing. No cyanosis. No edema. NEUROLOGICAL: Sedated and intubated A/P Assessment and Plan Hypercapnic respiratory acidosis COPD exac Mild leukocytosis UTI Plan Neuro: On Versed/Fentanyl infusion for sedation. Daily sedation vacation CT brain is negative Pulm: Continue with vent support keep sat >92% Bronchodilators, ICU vent bundle. On Solumedrol 60mg Q8 SBT trials as jaye CV: Monitor HR and BP keep MAP>65mmHG : Monitor renal function, electrolytes replacement as needed. D/c IVF GI: Start tube feeds today if remains intubated. On Pepcid for GI prophylaxis ID: Continue with abx ( Vanco, Levaquin) monitor for signs of infections ( Fever , WBC) check sputum cx Follow up on blood and urine cxs Heme: Monitor CBC Endo: SSI to maintain Euglycemia GI prophylaxis- on Pepcid DVT prophylaxis- On Lovenox daily Level 3 Spencer Peacock MD Sep 03, 2017 10:27
--- NOTE | 2017-09-03 11:36 | EKG ---
Date Performed: 09/02/2017 Time Performed: 17:53:22 PTAGE: 71 years EKG: SINUS TACHYCARDIA NONSPECIFIC T-WAVE ABNORMALITY ABNORMAL RHYTHM ECG NO PREVIOUS TRACING DOCTOR: Favio Benson Interpretating Date/Time 09/03/2017 11:34:47
[2017-09-03 13:20] LABS: AUTOMATED NEUTROPHIL # 7.4 TH/MM3 (1.8-7.7); BASOPHIL % 0.1 % (0.0-2.0); HEMATOCRIT 31.7 % (35.0-46.0); HEMO FLAGS DIFF FINAL; LYMPH % 5.6 % (9.0-44.0); LYMPHOCYTE # 0.4 TH/MM3 (1.0-4.8); MEAN CELL VOLUME 94.8 FL (80.0-100.0); MEAN CORPUSCULAR HEMOGLOBIN 31.2 PG (27.0-34.0); MEAN CORPUSCULAR HGB CONC 32.9 % (32.0-36.0); MONO % 1.2 % (0.0-8.0); NEUT % 93.1 % (16.0-70.0); PLATELET COUNT 379 TH/MM3 (150-450); RED BLOOD COUNT 3.34 MIL/MM3 (4.00-5.30); RED CELL DISTRIBUTION WIDTH 16.6 % (11.6-17.2); WHITE BLOOD COUNT 7.9 TH/MM3 (4.0-11.0)
[2017-09-03] MEDS: MIDAZOLAM 100 MG/100 ML INJ 100 ML IV PRN (13:20)
[2017-09-03] MEDS ORDERED: METOPROLOL TARTRATE 5 MG/5 ML VIAL IV PUSH ONE (14:00)
[2017-09-03 15:32] LABS: BLOOD GAS BASE EXCESS -0.7 mmol/L (-2-2); BLOOD GAS HCO3 23 mmol/L (22-26); BLOOD GAS METHEMOGLOBIN 1.1 % (0-2); BLOOD GAS O2 HGB SATURATION 97 % (90-100); BLOOD GAS OXYGEN CONTENT 14.6 Vol % (12.0-20.0); BLOOD GAS PCO2 33 mmHg (38-42); BLOOD GAS PO2 146 mmHg (61-120); BLOOD GAS TOTAL HGB 10.5 G/DL (12.0-16.0); CRITICAL VALUE NO; DRAW SITE RT BRACHIAL; FIO2 40 %; NUMBER OF ARTERIAL PUNCTURES 1; OXYGEN DEVICE VENTILATOR; TEMP CORR TO 98.6; ULNAR PULSE Y; VENT SETTINGS EPAP 5 PS 10
[2017-09-03 15:33] LABS: STAT NO
[2017-09-03] MEDS: ALPRAZolam 0.25 MG TAB PO PRN (17:54)
[2017-09-03] MEDS: ACETAMINOPHEN/HYDROcodone 325 MG/5 MG TAB PO PRN (18:30)
[2017-09-03] MEDS: LEVOFLOXACIN 750 MG PREMIX INJ 150 ML IV SCH (20:27)
[2017-09-03] MEDS: BUDESONIDE-FORMOTEROL 160/4.5 MCG INHALER INH SCH (20:27)
[2017-09-03] MEDS: ENOXAPARIN SODIUM 40 MG/0.4 ML SYRINGE SQ SCH (20:28)
[2017-09-04] VITALS (35 sets, daily range): BP systolic 96–194; BP diastolic 49–93; PULSE 62–142; RESP 11–31; TEMP 97.3–98; O2SAT 84–100
[2017-09-04] MEDS: ACETAMINOPHEN/HYDROcodone 325 MG/5 MG TAB PO PRN ×2 (00:09→05:50)
[2017-09-04] MEDS: ATENOLOL 25 MG TAB PO SCH ×2 (00:59→08:57)
[2017-09-04] MEDS: ALPRAZolam 0.25 MG TAB PO PRN (02:57)
[2017-09-04] MEDS: CHLORHEXIDINE GLUCONATE 2 % 1 PACK (2 CLOTHS) TOP SCH (04:00)
[2017-09-04] MEDS: RESP: ALBUTEROL 2.5 MG/IPRATROPIUM 0.5 MG NEB (SCH) INH ×6 (04:00→20:43)
[2017-09-04] MEDS: methylPREDNISolone SOD SUCC 125 MG/2 ML VIAL IV PUSH SCH ×3 (05:49→21:28)
[2017-09-04 07:05] LABS: AUTOMATED NEUTROPHIL # 7.6 TH/MM3 (1.8-7.7); BASOPHIL % 0.3 % (0.0-2.0); HEMATOCRIT 32.4 % (35.0-46.0); HEMO FLAGS DIFF FINAL; LYMPH % 11.3 % (9.0-44.0); MEAN CELL VOLUME 93.8 FL (80.0-100.0); MEAN CORPUSCULAR HEMOGLOBIN 29.9 PG (27.0-34.0); MEAN CORPUSCULAR HGB CONC 31.9 % (32.0-36.0); MONO % 4.3 % (0.0-8.0); NEUT % 84.1 % (16.0-70.0); PLATELET COUNT 477 TH/MM3 (150-450); RED BLOOD COUNT 3.46 MIL/MM3 (4.00-5.30); RED CELL DISTRIBUTION WIDTH 16.7 % (11.6-17.2); WHITE BLOOD COUNT 9.1 TH/MM3 (4.0-11.0)
[2017-09-04 07:45] LABS: BICARBONATE 26.5 MEQ/L (21.0-32.0)
[2017-09-04] MEDS: BUDESONIDE-FORMOTEROL 160/4.5 MCG INHALER INH SCH ×2 (08:57→21:00)
[2017-09-04] MEDS: DOCUSATE SODIUM 50 MG/SENNA 8.6 MG TAB PO SCH ×2 (08:57→21:28)
[2017-09-04] MEDS: FAMOTIDINE 20 MG/2 ML VIAL IV PUSH SCH ×2 (08:58→21:28)
[2017-09-04] MEDS: CHLORHEXIDINE 0.12% (ORAL KIT) 15 ML CUP MT SCH ×2 (08:58→21:55)
[2017-09-04] MEDS: SODIUM CHLORIDE 0.9% FLUSH 10 ML FLUSH IV FLUSH SCH ×2 (08:58→21:29)
[2017-09-04] MEDS ORDERED: ETOMIDATE 40 MG/20 ML VIAL ONE (09:34)
[2017-09-04] MEDS ORDERED: ETOMIDATE 20 MG/10 ML VIAL IV PUSH ONE (09:45)
[2017-09-04] MEDS: fentaNYL DRIP 250 ML IV PRN ×2 (09:50→21:55)
--- NOTE | 2017-09-04 09:56 | HHI.CCPN ---
Subjective Remarks/Hospital Course 71-year-old female came to the emergency room with history of shortness of breath that's progressively worsening. Patient is from a [facility]. She has history of COPD and is progressively worsening for unknown amount of time. By the time she arrived to emergency department she became unresponsive. She was intubated by ED attending for an airway protection and severe hypoxemia. 09/03 Patient remains sedated and intubated. 09/04 Patient was extubated yesterday and was on 3L oxygen with good sats. Afebrile. She became diaphoretic, tachypneic, tachycardic and using her accessory muscle for resp. she was subsequently intubated and placed on mechanical ventilation. Objective Vital Signs Date Time Temp Pulse Resp B/P (MAP) Pulse Ox O2 Delivery O2 Flow Rate FiO2 09/04/17 08:48 94 Nasal Cannula 3.00 09/04/17 08:00 97.3 93 15 141/80 (100) 09/03/17 15:12 40 Intake and Output 09/04/17 09/04/17 09/05/17 08:00 16:00 00:00 Intake Total 400 ml Output Total 550 ml Balance -150 ml Result Diagram: 09/04/17 0611 09/04/17 0611 Other Results Laboratory Tests Test 09/03/17 12:36 09/03/17 15:21 09/04/17 06:11 White Blood Count 7.9 TH/MM3 9.1 TH/MM3 Red Blood Count 3.34 MIL/MM3 3.46 MIL/MM3 Hemoglobin 10.4 GM/DL 10.3 GM/DL Hematocrit 31.7 % 32.4 % Mean Corpuscular Volume 94.8 FL 93.8 FL Mean Corpuscular Hemoglobin 31.2 PG 29.9 PG Mean Corpuscular Hemoglobin Concent 32.9 % 31.9 % Red Cell Distribution Width 16.6 % 16.7 % Platelet Count 379 TH/MM3 477 TH/MM3 Mean Platelet Volume 7.9 FL 7.4 FL Neutrophils (%) (Auto) 93.1 % 84.1 % Lymphocytes (%) (Auto) 5.6 % 11.3 % Monocytes (%) (Auto) 1.2 % 4.3 % Eosinophils (%) (Auto) 0.0 % 0.0 % Basophils (%) (Auto) 0.1 % 0.3 % Neutrophils # (Auto) 7.4 TH/MM3 7.6 TH/MM3 Lymphocytes # (Auto) 0.4 TH/MM3 1.0 TH/MM3 Monocytes # (Auto) 0.1 TH/MM3 0.4 TH/MM3 Eosinophils # (Auto) 0.0 TH/MM3 0.0 TH/MM3 Basophils # (Auto) 0.0 TH/MM3 0.0 TH/MM3 CBC Comment DIFF FINAL DIFF FINAL Differential Comment Blood Gas Puncture Site RT BRACHIAL Blood Gas Patient Temperature 98.6 Blood Gas HCO3 23 mmol/L Blood Gas Base Excess -0.7 mmol/L Blood Gas Oxygen Saturation 97 % Arterial Blood pH 7.46 Arterial Blood Partial Pressure CO2 33 mmHg Arterial Blood Partial Pressure O2 146 mmHg Arterial Blood Oxygen Content 14.6 Vol % Arterial Blood Carboxyhemoglobin 1.0 % Arterial Blood Methemoglobin 1.1 % Blood Gas Hemoglobin 10.5 G/DL Oxygen Delivery Device VENTILATOR Blood Gas Ventilator Setting EPAP 5 PS 10 Blood Gas Inspired Oxygen 40 % Blood Urea Nitrogen 11 MG/DL Creatinine 0.48 MG/DL Random Glucose 82 MG/DL Calcium Level 8.5 MG/DL Sodium Level 137 MEQ/L Potassium Level 4.0 MEQ/L Chloride Level 103 MEQ/L Carbon Dioxide Level 26.5 MEQ/L Anion Gap 8 MEQ/L Estimat Glomerular Filtration Rate 128 ML/MIN Imaging Last Impressions Chest X-Ray 09/03/17 0000 Signed Impressions: Service Date/Time: Sunday, September 03, 2017 03:33 - CONCLUSION: Left lower lobe consolidation. Probable bilateral pleural effusions. Clemente Kiser MD Head CT 09/02/17 1812 Signed Impressions: Service Date/Time: Saturday, September 02, 2017 21:24 - CONCLUSION: Normal examination for a patient of this age. Aaron Henry MD CT Angiography 09/02/17 0000 Signed Impressions: Service Date/Time: Saturday, September 02, 2017 21:27 - CONCLUSION: 1. Negative for pulmonary embolus. 2. Small to moderate bilateral pleural effusions with compressive atelectasis in the lungs. Mild interstitial edema pattern. Aaron Henry MD Objective Remarks GENERAL: Poorly responsive, sedated and intubated female SKIN: Diaphoretic. Multiple large ecchymosis and some skin tear HEAD: Atraumatic. Normocephalic. EYES: Pupils equal and round. No scleral icterus. No injection or drainage. ENT: No nasal bleeding or discharge. Mucous membranes pink and moist. NECK: Trachea midline. No JVD. CARDIOVASCULAR: Regular rate and rhythm. No murmur appreciated. RESPIRATORY: Decreased air entry bilaterally GASTROINTESTINAL: Abdomen soft, non-tender, nondistended. Hepatic and splenic margins not palpable. MUSCULOSKELETAL: No obvious deformities. No clubbing. No cyanosis. No edema. NEUROLOGICAL: Sedated and intubated A/P Assessment and Plan Hypercapnic respiratory acidosis extubated 09/03 reintubated 09/04 COPD exac Mild leukocytosis UTI Plan Neuro: Fentanyl infusion for sedation and vent synchrony. Daily sedation vacation CT brain is negative Pulm: Continue with vent support keep sat >92% Bronchodilators, ICU vent bundle. On Solumedrol 60mg Q8 Check CXR and ABG post intubation CV: Monitor HR and BP keep MAP>65mmHG : Monitor renal function, electrolytes replacement as needed. Diurese with Lasix 20mg x1 GI: Start tube feeds Glucerna 1.5 with goal rate 45ml/hr. On Pepcid for GI prophylaxis ID: Continue with abx ( Vanco, Levaquin) monitor for signs of infections ( Fever , WBC) Follow up on sputum cx 09/03, blood and urine cxs 09/02: NGTD Heme: Monitor CBC Endo: SSI to maintain Euglycemia GI prophylaxis- on Pepcid DVT prophylaxis- On Lovenox daily Level 3 Spencer Peacock MD Sep 04, 2017 09:56
[2017-09-04] MEDS ORDERED: FUROSEMIDE 20 MG/2 ML VIAL IV PUSH ONE (10:30)
[2017-09-04] MEDS ORDERED: PHARMACY ORDERED LAB ONE (10:45)
--- NOTE | 2017-09-04 11:03 | RADRPT ---
EXAM DATE/TIME: 09/04/2017 10:38 [facility] COMPARISON: CHEST SINGLE AP, September 03, 2017, 3:33. INDICATIONS : Post intubation. MEDICAL HISTORY : Chronic obstructive pulmonary disease. SURGICAL HISTORY : Cholecystectomy. Hernia ENCOUNTER: Subsequent ACUITY: 1 day PAIN SCORE: Non-responsive. LOCATION: Bilateral chest FINDINGS: A single view of the chest demonstrates bibasilar densities. Endotracheal tube seen with tip 4 cm abo ve the deyanira.. The nasogastric tube unchanged. The cardiomediastinal contours are unremarkable. Os seous structures are intact. CONCLUSION: Adequate placement of endotracheal tube. Sergio Jarrett MD on September 04, 2017 at 11:00 Board Certified Radiologist. This report was verified electronically.
[2017-09-04 12:40] LABS: BLOOD GAS BASE EXCESS 0.5 mmol/L (-2-2); BLOOD GAS CARBOXYHEMOGLOBIN 0.7 % (0-4); BLOOD GAS HCO3 27 mmol/L (22-26); BLOOD GAS METHEMOGLOBIN 1.2 % (0-2); BLOOD GAS O2 HGB SATURATION 96 % (90-100); BLOOD GAS OXYGEN CONTENT 15.5 Vol % (12.0-20.0); BLOOD GAS PCO2 69 mmHg (38-42); BLOOD GAS PO2 132 mmHg (61-120); BLOOD GAS TOTAL HGB 11.3 G/DL (12.0-16.0); TEMP CORR TO 98.6
[2017-09-04 12:41] LABS: CRITICAL VALUE YES; DRAW SITE RT BRACHIAL; FIO2 50 %; OXYGEN DEVICE VENTILATOR
[2017-09-04 12:42] LABS: NUMBER OF ARTERIAL PUNCTURES 1; STAT NO; ULNAR PULSE PRESENT
[2017-09-04] MEDS: MIDAZOLAM 100 MG/100 ML INJ 100 ML IV PRN (16:40)
[2017-09-04] MEDS: VANCOMYCIN 1,000 MG/NS 250 ML IV SCH ×4 (16:42→21:28)
[2017-09-04 18:24] LABS: BLOOD GAS BASE EXCESS 2.4 mmol/L (-2-2); BLOOD GAS HCO3 27 mmol/L (22-26); BLOOD GAS METHEMOGLOBIN 1.2 % (0-2); BLOOD GAS O2 HGB SATURATION 96 % (90-100); BLOOD GAS OXYGEN CONTENT 13.5 Vol % (12.0-20.0); BLOOD GAS PCO2 43 mmHg (38-42); BLOOD GAS PO2 120 mmHg (61-120); BLOOD GAS TOTAL HGB 9.8 G/DL (12.0-16.0); CRITICAL VALUE NO; OXYGEN DEVICE VENTILATOR; TEMP CORR TO 98.6
[2017-09-04 18:26] LABS: DRAW SITE RT BRACHIAL; FIO2 40 %; NUMBER OF ARTERIAL PUNCTURES 1; STAT NO; ULNAR PULSE PRESENT
[2017-09-04] MEDS: LEVOFLOXACIN 750 MG PREMIX INJ 150 ML IV SCH (21:28)
[2017-09-04] MEDS: ENOXAPARIN SODIUM 40 MG/0.4 ML SYRINGE SQ SCH (21:29)
[2017-09-05] VITALS (16 sets, daily range): BP systolic 101–139; BP diastolic 51–64; PULSE 56–90; RESP 24–26; TEMP 96.7–98.6; O2SAT 98–100
[2017-09-05] MEDS: RESP: ALBUTEROL 2.5 MG/IPRATROPIUM 0.5 MG NEB (SCH) INH ×7 (01:12→23:10)
[2017-09-05] MEDS: CHLORHEXIDINE GLUCONATE 2 % 1 PACK (2 CLOTHS) TOP SCH (04:00)
[2017-09-05] MEDS: methylPREDNISolone SOD SUCC 125 MG/2 ML VIAL IV PUSH SCH ×3 (04:22→21:33)
[2017-09-05 06:55] LABS: AUTOMATED NEUTROPHIL # 7.2 TH/MM3 (1.8-7.7); BASOPHIL % 0.1 % (0.0-2.0); HEMATOCRIT 31.7 % (35.0-46.0); HEMO FLAGS DIFF FINAL; LYMPHOCYTE # 0.6 TH/MM3 (1.0-4.8); MEAN CELL VOLUME 93.4 FL (80.0-100.0); MEAN CORPUSCULAR HEMOGLOBIN 31.1 PG (27.0-34.0); MEAN CORPUSCULAR HGB CONC 33.3 % (32.0-36.0); MONO % 3.3 % (0.0-8.0); NEUT % 88.6 % (16.0-70.0); PLATELET COUNT 415 TH/MM3 (150-450); RED CELL DISTRIBUTION WIDTH 16.8 % (11.6-17.2); WHITE BLOOD COUNT 8.1 TH/MM3 (4.0-11.0)
[2017-09-05 07:08] LABS: BICARBONATE 28.2 MEQ/L (21.0-32.0); POTASSIUM 4.2 MEQ/L (3.5-5.1)
[2017-09-05] MEDS: BUDESONIDE-FORMOTEROL 160/4.5 MCG INHALER INH SCH ×2 (09:00→21:00)
[2017-09-05] MEDS: SODIUM CHLORIDE 0.9% FLUSH 10 ML FLUSH IV FLUSH SCH ×2 (09:54→21:35)
[2017-09-05] MEDS: FAMOTIDINE 20 MG/2 ML VIAL IV PUSH SCH ×2 (09:54→21:35)
[2017-09-05] MEDS: VANCOMYCIN 1,000 MG/NS 250 ML IV SCH ×2 (09:54)
[2017-09-05] MEDS: DOCUSATE SODIUM 50 MG/SENNA 8.6 MG TAB PO SCH ×2 (09:54→21:32)
[2017-09-05] MEDS: ATENOLOL 25 MG TAB PO SCH (09:54)
[2017-09-05] MEDS: fentaNYL DRIP 250 ML IV PRN ×2 (09:54→21:58)
[2017-09-05] MEDS: CHLORHEXIDINE 0.12% (ORAL KIT) 15 ML CUP MT SCH ×2 (09:55→21:32)
--- NOTE | 2017-09-05 10:22 | HHI.CCPN ---
Subjective Remarks/Hospital Course 71-year-old female came to the emergency room with history of shortness of breath that's progressively worsening. Patient is [facility] [place] [facility]. She has history of COPD and is progressively worsening for unknown amount of time. By the time she arrived to emergency department she became unresponsive. She was intubated by ED attending for an airway protection and severe hypoxemia. 09/03 Patient remains sedated and intubated. 09/04 Patient was extubated yesterday and was on 3L oxygen with good sats. Afebrile. She became diaphoretic, tachypneic, tachycardic and using her accessory muscle for resp. she was subsequently intubated and placed on mechanical ventilation. 09/05 Patient is intubated and on Versed and Fentanyl drips for sedation however she is awake. afebrile. Objective Vital Signs Date Time Temp Pulse Resp B/P (MAP) Pulse Ox O2 Delivery O2 Flow Rate FiO2 09/05/17 08:39 100 40 09/05/17 06:00 68 09/05/17 04:00 97.9 24 101/51 (68) 09/04/17 20:48 Ventilator 09/04/17 08:48 3.00 Intake and Output 09/05/17 09/05/17 09/06/17 08:00 16:00 00:00 Intake Total 178 ml 109 ml Output Total 275 ml Balance -97 ml 109 ml Result Diagram: 09/05/17 0610 09/05/17 0610 Other Results Laboratory Tests Test 09/04/17 12:25 09/04/17 18:05 09/05/17 06:10 Blood Gas Puncture Site RT BRACHIAL RT BRACHIAL Blood Gas Patient Temperature 98.6 98.6 Blood Gas HCO3 27 mmol/L 27 mmol/L Blood Gas Base Excess 0.5 mmol/L 2.4 mmol/L Blood Gas Oxygen Saturation 96 % 96 % Arterial Blood pH 7.22 7.41 Arterial Blood Partial Pressure CO2 69 mmHg 43 mmHg Arterial Blood Partial Pressure O2 132 mmHg 120 mmHg Arterial Blood Oxygen Content 15.5 Vol % 13.5 Vol % Arterial Blood Carboxyhemoglobin 0.7 % 1.0 % Arterial Blood Methemoglobin 1.2 % 1.2 % Blood Gas Hemoglobin 11.3 G/DL 9.8 G/DL Oxygen Delivery Device VENTILATOR VENTILATOR Blood Gas Ventilator Setting Blood Gas Inspired Oxygen 50 % 40 % White Blood Count 8.1 TH/MM3 Red Blood Count 3.40 MIL/MM3 Hemoglobin 10.6 GM/DL Hematocrit 31.7 % Mean Corpuscular Volume 93.4 FL Mean Corpuscular Hemoglobin 31.1 PG Mean Corpuscular Hemoglobin Concent 33.3 % Red Cell Distribution Width 16.8 % Platelet Count 415 TH/MM3 Mean Platelet Volume 7.4 FL Neutrophils (%) (Auto) 88.6 % Lymphocytes (%) (Auto) 8.0 % Monocytes (%) (Auto) 3.3 % Eosinophils (%) (Auto) 0.0 % Basophils (%) (Auto) 0.1 % Neutrophils # (Auto) 7.2 TH/MM3 Lymphocytes # (Auto) 0.6 TH/MM3 Monocytes # (Auto) 0.3 TH/MM3 Eosinophils # (Auto) 0.0 TH/MM3 Basophils # (Auto) 0.0 TH/MM3 CBC Comment DIFF FINAL Differential Comment Blood Urea Nitrogen 22 MG/DL Creatinine 0.64 MG/DL Random Glucose 113 MG/DL Calcium Level 8.4 MG/DL Sodium Level 139 MEQ/L Potassium Level 4.2 MEQ/L Chloride Level 104 MEQ/L Carbon Dioxide Level 28.2 MEQ/L Anion Gap 7 MEQ/L Estimat Glomerular Filtration Rate 92 ML/MIN Imaging Last Impressions Chest X-Ray 09/04/17 0000 Signed Impressions: Service Date/Time: Monday, September 04, 2017 10:38 - CONCLUSION: Adequate placement of endotracheal tube. Sergio Jarrett MD Head CT 09/02/17 1812 Signed Impressions: Service Date/Time: Saturday, September 02, 2017 21:24 - CONCLUSION: Normal examination for a patient of this age. Aaron Henry MD CT Angiography 09/02/17 0000 Signed Impressions: Service Date/Time: Saturday, September 02, 2017 21:27 - CONCLUSION: 1. Negative for pulmonary embolus. 2. Small to moderate bilateral pleural effusions with compressive atelectasis in the lungs. Mild interstitial edema pattern. Aaron Henry MD Objective Remarks GENERAL: Patient is 71 yo intubated and sedated SKIN: Diaphoretic. Multiple large ecchymosis and some skin tear HEAD: Atraumatic. Normocephalic. EYES: Pupils equal and round. No scleral icterus. No injection or drainage. ENT: No nasal bleeding or discharge. Mucous membranes pink and moist. NECK: Trachea midline. No JVD. CARDIOVASCULAR: Regular rate and rhythm. No murmur appreciated. RESPIRATORY: Decreased air entry bilaterally GASTROINTESTINAL: Abdomen soft, non-tender, nondistended. Hepatic and splenic margins not palpable. MUSCULOSKELETAL: No obvious deformities. No clubbing. No cyanosis. No edema. NEUROLOGICAL: Sedated and intubated A/P Assessment and Plan Hypercapnic respiratory acidosis extubated 09/03 reintubated 09/04 COPD exac Mild leukocytosis UTI Plan Neuro: Fentanyl/Versed infusion for sedation and vent synchrony. Daily sedation vacation CT brain is negative Pulm: Continue with vent support keep sat >92% Bronchodilators, ICU vent bundle. On Solumedrol 60mg Q8 Start SBT daily as jaye CV: Monitor HR and BP keep MAP>65mmHG On Atenolol 12.5mg daily : Monitor renal function, electrolytes replacement as needed. GI: On tube feeds Glucerna 1.5 with goal rate 45ml/hr. On Pepcid for GI prophylaxis ID: Continue with abx ( Vanco, Levaquin) monitor for signs of infections ( Fever , WBC) Follow up on sputum cx 09/03, urine cx 09/02: NGTD BC 09/02: Coag negative staph, GPC ? contaminant. BC 09/04: NGTD Heme: Monitor CBC Endo: SSI to maintain Euglycemia GI prophylaxis- on Pepcid DVT prophylaxis- On Lovenox daily Level 3 Spencer Peacock MD Sep 05, 2017 10:22
[2017-09-05] MEDS: MIDAZOLAM 100 MG/100 ML INJ 100 ML IV PRN (14:43)
[2017-09-05] MEDS: LEVOFLOXACIN 750 MG PREMIX INJ 150 ML IV SCH (21:32)
[2017-09-05] MEDS: ENOXAPARIN SODIUM 40 MG/0.4 ML SYRINGE SQ SCH (21:32)
[2017-09-05] MEDS ORDERED: PHARMACY ORDERED LAB ONE (22:45)
[2017-09-06] VITALS (49 sets, daily range): BP systolic 106–184; BP diastolic 53–85; PULSE 51–118; RESP 5–25; TEMP 97.9–98.3; O2SAT 76–100
[2017-09-06] MEDS: CHLORHEXIDINE GLUCONATE 2 % 1 PACK (2 CLOTHS) TOP SCH ×2 (02:54→23:22)
[2017-09-06] MEDS: RESP: ALBUTEROL 2.5 MG/IPRATROPIUM 0.5 MG NEB (SCH) INH ×4 (03:18→19:39)
[2017-09-06] MEDS: methylPREDNISolone SOD SUCC 125 MG/2 ML VIAL IV PUSH SCH ×3 (06:30→21:53)
[2017-09-06 07:14] LABS: AUTOMATED NEUTROPHIL # 9.3 TH/MM3 (1.8-7.7); BASOPHIL % 0.2 % (0.0-2.0); HEMO FLAGS DIFF FINAL; LYMPHOCYTE # 1.2 TH/MM3 (1.0-4.8); MEAN CELL VOLUME 92.7 FL (80.0-100.0); MEAN CORPUSCULAR HEMOGLOBIN 30.5 PG (27.0-34.0); MEAN CORPUSCULAR HGB CONC 32.9 % (32.0-36.0); MONO % 6.2 % (0.0-8.0); NEUT % 82.6 % (16.0-70.0); PLATELET COUNT 408 TH/MM3 (150-450); RED BLOOD COUNT 3.34 MIL/MM3 (4.00-5.30); RED CELL DISTRIBUTION WIDTH 16.9 % (11.6-17.2); WHITE BLOOD COUNT 11.2 TH/MM3 (4.0-11.0)
[2017-09-06 07:35] LABS: BICARBONATE 28.2 MEQ/L (21.0-32.0); POTASSIUM 4.3 MEQ/L (3.5-5.1)
[2017-09-06] MEDS: FAMOTIDINE 20 MG/2 ML VIAL IV PUSH SCH ×2 (07:41→21:53)
[2017-09-06] MEDS: ATENOLOL 25 MG TAB PO SCH (07:41)
[2017-09-06] MEDS: DOCUSATE SODIUM 50 MG/SENNA 8.6 MG TAB PO SCH ×2 (07:41→21:53)
[2017-09-06] MEDS: SODIUM CHLORIDE 0.9% FLUSH 10 ML FLUSH IV FLUSH SCH ×2 (07:42→21:54)
[2017-09-06] MEDS: CHLORHEXIDINE 0.12% (ORAL KIT) 15 ML CUP MT SCH ×2 (07:42→21:54)
[2017-09-06] MEDS: VANCOMYCIN 1,000 MG/NS 250 ML IV SCH ×2 (07:42)
[2017-09-06] MEDS: BUDESONIDE-FORMOTEROL 160/4.5 MCG INHALER INH SCH ×2 (09:00→21:00)
--- NOTE | 2017-09-06 10:12 | HHI.CCPN ---
Subjective Remarks/Hospital Course 71-year-old female came to the emergency room with history of shortness of breath that's progressively worsening. Patient is from a [place] [facility]. She has history of COPD and is progressively worsening for unknown amount of time. By the time she arrived to emergency department she became unresponsive. She was intubated by ED attending for an airway protection and severe hypoxemia. 09/03 Patient remains sedated and intubated. 09/04 Patient was extubated yesterday and was on 3L oxygen with good sats. Afebrile. She became diaphoretic, tachypneic, tachycardic and using her accessory muscle for resp. she was subsequently intubated and placed on mechanical ventilation. 09/05 Patient is intubated and on Versed and Fentanyl drips for sedation however she is awake. afebrile. 09/06 Patient remains sedated and intubated. Afebrile. Objective Vital Signs Date Time Temp Pulse Resp B/P (MAP) Pulse Ox O2 Delivery O2 Flow Rate FiO2 09/06/17 09:45 85 5 134/65 (88) 94 09/06/17 08:40 40 09/06/17 04:00 98.3 09/04/17 20:48 Ventilator 09/04/17 08:48 3.00 Intake and Output 09/06/17 09/06/17 09/07/17 08:00 16:00 00:00 Intake Total 729 ml Balance 729 ml Result Diagram: 09/06/17 0620 09/06/17 0620 Other Results Laboratory Tests Test 09/05/17 23:48 09/06/17 06:20 Vancomycin Level Trough 22.8 MCG/ML White Blood Count 11.2 TH/MM3 Red Blood Count 3.34 MIL/MM3 Hemoglobin 10.2 GM/DL Hematocrit 31.0 % Mean Corpuscular Volume 92.7 FL Mean Corpuscular Hemoglobin 30.5 PG Mean Corpuscular Hemoglobin Concent 32.9 % Red Cell Distribution Width 16.9 % Platelet Count 408 TH/MM3 Mean Platelet Volume 7.6 FL Neutrophils (%) (Auto) 82.6 % Lymphocytes (%) (Auto) 11.0 % Monocytes (%) (Auto) 6.2 % Eosinophils (%) (Auto) 0.0 % Basophils (%) (Auto) 0.2 % Neutrophils # (Auto) 9.3 TH/MM3 Lymphocytes # (Auto) 1.2 TH/MM3 Monocytes # (Auto) 0.7 TH/MM3 Eosinophils # (Auto) 0.0 TH/MM3 Basophils # (Auto) 0.0 TH/MM3 CBC Comment DIFF FINAL Differential Comment Blood Urea Nitrogen 26 MG/DL Creatinine 0.50 MG/DL Random Glucose 97 MG/DL Calcium Level 8.6 MG/DL Sodium Level 141 MEQ/L Potassium Level 4.3 MEQ/L Chloride Level 105 MEQ/L Carbon Dioxide Level 28.2 MEQ/L Anion Gap 8 MEQ/L Estimat Glomerular Filtration Rate 122 ML/MIN Imaging Last Impressions Chest X-Ray 09/04/17 0000 Signed Impressions: Service Date/Time: Monday, September 04, 2017 10:38 - CONCLUSION: Adequate placement of endotracheal tube. Sergio Jarrett MD Head CT [id number]/02/[id number] Signed Impressions: Service Date/Time: Saturday, September 02, 2017 21:24 - CONCLUSION: Normal examination for a patient of this age. Aaron Henry MD CT Angiography 09/02/17 0000 Signed Impressions: Service Date/Time: Saturday, September 02, 2017 21:27 - CONCLUSION: 1. Negative for pulmonary embolus. 2. Small to moderate bilateral pleural effusions with compressive atelectasis in the lungs. Mild interstitial edema pattern. Aaron Henry MD Objective Remarks GENERAL: Patient is 71 yo intubated and sedated SKIN: Diaphoretic. Multiple large ecchymosis and some skin tear HEAD: Atraumatic. Normocephalic. EYES: Pupils equal and round. No scleral icterus. No injection or drainage. ENT: No nasal bleeding or discharge. Mucous membranes pink and moist. NECK: Trachea midline. No JVD. CARDIOVASCULAR: Regular rate and rhythm. No murmur appreciated. RESPIRATORY: Decreased air entry bilaterally GASTROINTESTINAL: Abdomen soft, non-tender, nondistended. Hepatic and splenic margins not palpable. MUSCULOSKELETAL: No obvious deformities. No clubbing. No cyanosis. No edema. NEUROLOGICAL: Sedated and intubated A/P Assessment and Plan Hypercapnic respiratory acidosis extubated 09/03 reintubated 09/04 COPD exac Mild leukocytosis UTI Plan Neuro: Fentanyl/Versed infusion for sedation and vent synchrony. Daily sedation vacation CT brain is negative Pulm: Continue with vent support keep sat >92% Bronchodilators, ICU vent bundle. On Solumedrol 60mg Q8 SBT daily as jaye CV: Monitor HR and BP keep MAP>65mmHG On Atenolol 12.5mg daily : Monitor renal function, electrolytes replacement as needed. GI: On tube feeds Glucerna 1.5 with goal rate 45ml/hr. On Pepcid for GI prophylaxis ID: Continue with abx ( Vanco, Levaquin) monitor for signs of infections ( Fever , WBC) Follow up on sputum cx 09/03, urine cx 09/02: NGTD BC 09/02: Coag negative staph, GPC ? contaminant. BC 09/04: NGTD Heme: Monitor CBC Endo: SSI to maintain Euglycemia GI prophylaxis- on Pepcid DVT prophylaxis- On Lovenox daily Level 3 Spencer Peacock MD Sep 06, 2017 10:12
[2017-09-06] MEDS: MIDAZOLAM 100 MG/100 ML INJ 100 ML IV PRN (16:00)
[2017-09-06] MEDS: LEVOFLOXACIN 750 MG PREMIX INJ 150 ML IV SCH (21:53)
[2017-09-06] MEDS: ENOXAPARIN SODIUM 40 MG/0.4 ML SYRINGE SQ SCH (21:54)
[2017-09-06] MEDS: fentaNYL DRIP 250 ML IV PRN (23:21)
[2017-09-07] VITALS (19 sets, daily range): BP systolic 117–158; BP diastolic 49–76; PULSE 66–100; RESP 12–29; TEMP 97.7–98.7; O2SAT 92–100
[2017-09-07] MEDS: RESP: ALBUTEROL 2.5 MG/IPRATROPIUM 0.5 MG NEB (PRN) INH ×4 (03:12→20:24)
[2017-09-07] MEDS: VANCOMYCIN 1,000 MG/NS 250 ML IV SCH ×4 (03:16→20:22)
[2017-09-07] MEDS: methylPREDNISolone SOD SUCC 125 MG/2 ML VIAL IV PUSH SCH ×3 (04:29→20:22)
[2017-09-07] MEDS ORDERED: EPINEPHrine HCL (1:10,000) 1 MG/10 ML SYRINGE IV ONE (05:00)
[2017-09-07 07:12] LABS: AUTOMATED NEUTROPHIL # 9.2 TH/MM3 (1.8-7.7); BASOPHIL % 0.1 % (0.0-2.0); HEMATOCRIT 31.1 % (35.0-46.0); HEMO FLAGS DIFF FINAL; MEAN CELL VOLUME 92.3 FL (80.0-100.0); MEAN CORPUSCULAR HEMOGLOBIN 31.2 PG (27.0-34.0); MEAN CORPUSCULAR HGB CONC 33.8 % (32.0-36.0); MONO % 5.2 % (0.0-8.0); NEUT % 85.7 % (16.0-70.0); PLATELET COUNT 375 TH/MM3 (150-450); RED BLOOD COUNT 3.37 MIL/MM3 (4.00-5.30); RED CELL DISTRIBUTION WIDTH 16.1 % (11.6-17.2); WHITE BLOOD COUNT 10.8 TH/MM3 (4.0-11.0)
[2017-09-07 07:16] LABS: BICARBONATE 30.2 MEQ/L (21.0-32.0); MAGNESIUM 2.2 MG/DL (1.5-2.5); POTASSIUM 4.3 MEQ/L (3.5-5.1)
[2017-09-07] MEDS ORDERED: POTASSIUM CHLOR 40 MEQ PREMIX 100 ML IV PRN ×2 (07:45)
[2017-09-07] MEDS ORDERED: POTASSIUM PHOSPHATE MONOBASIC 500 MG TAB PO/TUBE PRN (07:45)
[2017-09-07] MEDS ORDERED: MAGNESIUM SULFATE INJ 2 GM in SODIUM CHLORIDE 0.9% INJ 96 ML IV PRN (07:45)
[2017-09-07] MEDS ORDERED: DEXMEDETOMIDINE INJ 200 MCG in SODIUM CHLORIDE 0.9% INJ 50 ML IV PRN (07:45)
[2017-09-07] MEDS ORDERED: POTASSIUM PHOSPHATE MONOBASIC 500 MG TAB PO PRN (07:45)
[2017-09-07] MEDS ORDERED: MAGNESIUM SULFATE INJ 4 GM in SODIUM CHLORIDE 0.9% INJ 92 ML IV PRN (07:45)
[2017-09-07] MEDS ORDERED: POTASSIUM PHOSPHATE INJ 30 MMOL in SODIUM CHLOR 0.9% 250 ML INJ 250 ML IV PRN (07:45)
[2017-09-07] MEDS ORDERED: MAGNESIUM OXIDE 400 MG TAB PO PRN (07:45)
[2017-09-07] MEDS ORDERED: SODIUM PHOSPHATE INJ 30 MMOL in SODIUM CHLOR 0.9% 250 ML INJ 240 ML IV PRN (07:45)
--- NOTE | 2017-09-07 07:49 | HHI.CCPN ---
Subjective Remarks/Hospital Course 71-year-old female came to the emergency room with history of shortness of breath that's progressively worsening. Patient is from a snf. She has history of COPD and is progressively worsening for unknown amount of time. By the time she arrived to emergency department she became unresponsive. She was intubated by ED attending for an airway protection and severe hypoxemia. 09/03 Patient remains sedated and intubated. 09/04 Patient was extubated yesterday and was on 3L oxygen with good sats. Afebrile. She became diaphoretic, tachypneic, tachycardic and using her accessory muscle for resp. she was subsequently intubated and placed on mechanical ventilation. 09/05 Patient is intubated and on Versed and Fentanyl drips for sedation however she is awake. afebrile. 09/06 Patient remains sedated and intubated. Afebrile. 09/07: patient awake, remains intubated. repeat blood cultures + for GPCs. will obtain TTE to rule out endocarditis in the setting of persistently positive blood cultures with GPCs. also grossly volume overloaded. will diurese today. Objective Vital Signs Date Time Temp Pulse Resp B/P (MAP) Pulse Ox O2 Delivery O2 Flow Rate FiO2 09/07/17 06:00 70 09/07/17 05:05 95 35 09/07/17 04:00 24 133/60 (84) 09/07/17 00:00 97.9 09/04/17 20:48 Ventilator 09/04/17 08:48 3.00 Intake and Output 09/07/17 09/07/17 09/08/17 08:00 16:00 00:00 Intake Total 1655 ml Balance 1655 ml Result Diagram: 09/07/17 0544 09/07/17 0544 Other Results Microbiology Date/Time Source Procedure Growth Status 09/05/17 08:09 Urine Catheterized Urine Legionella Antigen - Final PRESUMPTIVE NEGATIVE FOR LEGIONELLA P... Complete 09/05/17 08:09 Urine Catheterized Urine Streptococcus pneumoniae Antigen (M - Final PRESUMPTIVE NEGATIVE FOR STREPTOCOCCU... Complete Imaging Last Impressions Chest X-Ray 09/04/17 0000 Signed Impressions: Service Date/Time: Monday, September 04, 2017 10:38 - CONCLUSION: Adequate placement of endotracheal tube. Sergio Jarrett MD Head CT 09/02/17 1812 Signed Impressions: Service Date/Time: Saturday, September 02, 2017 21:24 - CONCLUSION: Normal examination for a patient of this age. Aaron Henry MD CT Angiography 09/02/17 0000 Signed Impressions: Service Date/Time: Saturday, September 02, 2017 21:27 - CONCLUSION: 1. Negative for pulmonary embolus. 2. Small to moderate bilateral pleural effusions with compressive atelectasis in the lungs. Mild interstitial edema pattern. Aaron Henry MD Objective Remarks GENERAL: middle-aged female, lying in bed, intubated. awake. HEAD: Atraumatic. Normocephalic. EYES: Pupils equal and round. No scleral icterus. No injection or drainage. ENT: No nasal bleeding or discharge. Mucous membranes pink and moist. NECK: Trachea midline. slight JVD. CARDIOVASCULAR: Regular rate and rhythm. RESPIRATORY: equal chest rise. on full PRVC support this morning. fio2 35%. peep 5. GASTROINTESTINAL: Abdomen soft, non-tender, nondistended. MUSCULOSKELETAL: No obvious deformities. No clubbing. No cyanosis. trace edema. NEUROLOGICAL: RASS 0. CAM-. follows commands. A/P Assessment and Plan Assessment: 71yF with COPD and recurrent respiratory failure requiring re- intubation and failing SBTs for extubation. will continue SBTs daily. will pursue forced diuresis today. still highly complex and off pathway, remains with persistent respiratory failure not responsive to conservative measures. Hypercapnic respiratory acidosis Plan Neuro: d/c versed start precedex for improved delirium profile. continue fentanyl goal RASS -2. continue daily sedation vacations. Pulm: Acute hypoxic and hypercarbic respiratory failure- persistent extubated 09/03 reintubated 09/04 Continue with vent support keep sat >88% daily SBTs Bronchodilators, ICU vent bundle. On Solumedrol 60mg Q8 CV: Hypertension Monitor HR and BP keep MAP>65mmHG On Atenolol 12.5mg daily : no need for Sethi acutely Monitor renal function electrolytes replacement as needed. GI: Acute protein calorie malnutrition - moderate On tube feeds Glucerna 1.5 with goal rate 45ml/hr On Pepcid for GI prophylaxis ID: Coag negative staph bacteremia- persistent Urinary tract infection 2d echo to rule out endocarditis Continue Levaquin and Vancomycin. Full 7 day course of levaquin to end 09/08. continue vancomycin for full 14 days for gram positive bacteremia: if repeat blood cultures speciate as MSSA, will swap to oxacillin for full 14 day course for bacteremia (from first negative set) repeat blood cultures today Heme: Monitor CBC Endo: hyperglycemia of critical illness SSI to maintain Euglycemia GI prophylaxis- on Pepcid DVT prophylaxis- On Lovenox daily Dispo: remain in the ICU. highly complex and off pathway. John Palafox MD Sep 07, 2017 07:49
[2017-09-07] MEDS: CHLORHEXIDINE 0.12% (ORAL KIT) 15 ML CUP MT SCH ×2 (08:00→20:21)
[2017-09-07] MEDS: FAMOTIDINE 20 MG/2 ML VIAL IV PUSH SCH ×2 (08:17→20:22)
[2017-09-07] MEDS: BUDESONIDE-FORMOTEROL 160/4.5 MCG INHALER INH SCH ×2 (08:17→21:09)
[2017-09-07] MEDS: ATENOLOL 25 MG TAB PO SCH (08:17)
[2017-09-07] MEDS: SODIUM CHLORIDE 0.9% FLUSH 10 ML FLUSH IV FLUSH SCH ×2 (08:18→20:22)
[2017-09-07] MEDS: DOCUSATE SODIUM 50 MG/SENNA 8.6 MG TAB PO SCH ×2 (08:19→20:23)
[2017-09-07] MEDS: FUROSEMIDE 40 MG/4 ML VIAL IV PUSH SCH ×2 (08:28→16:17)
--- NOTE | 2017-09-07 10:18 | PD.PROCEDR ---
Procedure Note Procedure CPR procedure note Presenting rhythm: PEA arrest Event Details: After turning patient, nurse noted the patient was bradycardic and appeared agonal. No pulses were detected. CPR was started. Arrived before the initiation of CPR. Unable to back patient. Suction patient with significant mucus plugging followed by increased ability to back patient. ROSC obtained after 1 round of CPR with epinephrine. Procedure Description: Arrived at [facility]. Followed ACLS guidelines. See code sheet for details. I was personally present for the entire CPR event. John Palafox MD Sep 07, 2017 10:18
--- NOTE | 2017-09-07 10:22 | HHI.PR ---
Subjective Remarks Called emergently bedside for bradycardic PEA arrest. I arrived and started CPR. Please see separate procedure note for CPR details. Once ROSC was obtained significant increased peak pressures were seen. Stat chest x-ray did not demonstrate pneumothorax. Still had significant secretions coming out of the tube. Emergent bronchoscopy was performed, see separate procedure note for details. After bronch, lungs were cleared of significant secretions. Nebs were given. Emergent arterial line was placed. Patient was placed on her percent FiO2. The pressures were improving but still elevated. Patient was sedated with Versed IV for vent synchrony. Objective Vital Signs Date Time Temp Pulse Resp B/P (MAP) Pulse Ox O2 Delivery O2 Flow Rate FiO2 09/07/17 08:02 35 09/07/17 08:02 100 35 09/07/17 06:00 70 09/07/17 05:05 95 35 09/07/17 04:00 68 09/07/17 04:00 35 09/07/17 04:00 68 24 133/60 (84) 100 09/07/17 02:00 94 09/07/17 01:07 100 35 09/07/17 00:00 35 09/07/17 00:00 97.9 73 22 125/58 (80) 92 09/07/17 00:00 76 09/06/17 22:00 62 09/06/17 20:00 35 09/06/17 20:00 97.9 66 24 142/65 (90) 100 09/06/17 20:00 66 09/06/17 19:39 100 35 09/06/17 18:15 51 09/06/17 18:00 52 09/06/17 17:30 54 09/06/17 17:30 54 24 133/58 (83) 100 09/06/17 17:15 54 09/06/17 17:15 54 24 123/57 (79) 100 09/06/17 17:00 53 09/06/17 17:00 53 24 118/58 (78) 100 09/06/17 16:45 55 24 120/60 (80) 100 09/06/17 16:45 55 09/06/17 16:30 58 09/06/17 16:30 58 24 123/56 (78) 100 09/06/17 16:26 100 35 09/06/17 16:15 53 09/06/17 16:15 53 24 119/58 (78) 100 09/06/17 16:00 57 24 112/54 (73) 100 09/06/17 16:00 35 09/06/17 16:00 57 09/06/17 15:00 60 09/06/17 14:45 67 09/06/17 14:31 62 09/06/17 14:15 85 09/06/17 14:00 73 09/06/17 13:30 62 24 133/60 (84) 100 09/06/17 13:15 96 24 128/74 (92) 100 09/06/17 13:00 87 24 144/65 (91) 87 09/06/17 12:45 85 24 184/85 (118) 76 09/06/17 12:30 66 25 106/53 (70) 99 09/06/17 12:15 57 09/06/17 12:15 57 24 125/58 (80) 100 09/06/17 12:00 61 24 124/57 (79) 99 09/06/17 12:00 61 09/06/17 12:00 35 09/06/17 11:45 69 09/06/17 11:42 100 35 09/06/17 11:30 66 09/06/17 11:15 91 09/06/17 11:00 86 09/06/17 10:45 88 09/06/17 10:30 118 I/O 09/06/17 09/06/17 09/06/17 09/07/17 09/07/17 09/07/17 07:00 15:00 23:00 07:00 15:00 23:00 Intake Total 729 ml 1270 ml 1905 ml Balance 729 ml 1270 ml 1905 ml Intake IV Total 150 ml 250 ml 770 ml Tube Feeding 529 ml 520 ml 535 ml Tube Irrigant 50 ml Other 500 ml 600 ml # Voids 1 4 2 # Bowel Movements 0 2 2 Result Diagram: 09/07/17 0544 09/07/17 0544 Objective Remarks On my arrival to the acute event, patient was bradycardic with a wide-complex bradycardia, heart rate in the 30s. PEA. No evidence of pulse. Once pulse was reobtained, patient appeared agonal. Peak pressures 43 on the vent. SPO2 70% on 100% FiO2. Bag mask ventilated with aggressive suctioning lavage. Assessment and Plan Assessment and Plan Assessment: 71-year-old female with COPD exacerbation and health care associated pneumonia, now, complicated by PEA arrest secondary to acute hypoventilatory respiratory arrest secondary to mucus plugging. Active problems: PEA arrest Acute hypoxic and hypercapnic respiratory failure secondary to mucus plugging Respiratory arrest Plan: Arterial line Full vent support Wean FiO2 for goal SPO2 greater than 90% Frequent suctioning Nebs when necessary No weaning of ventilation today We'll update family After patient's ventilatory status improved slightly we'll attempt to wean sedation to get neurologic exam. Short time without circulation: Would anticipate return of neurologic function. This patient remains critically ill with one or more organ systems which are or may become a threat to life. I have spent in excess of 55 minutes discontinuously in the care and management of this patient. This time is exclusive of procedures, and includes, but is not limited to, evaluation of the patient, review of the medical record, discussions with family, consultants, nursing staff, or respiratory therapy, and documentation in the medical record. This time does not include time during active CPR. This time is after my initial evaluation the patient as separately document. John Palafox MD Sep 07, 2017 10:22
--- NOTE | 2017-09-07 10:25 | PD.PROCEDR ---
Procedure Note Procedure Procedure: Arterial Line Placement Left radial arterial line Diagnosis: Respiratory arrest Indications: Serial arterial blood gas sampling Consent: Emergent Description of the Procedure: The left wrist was prepped and draped sterilely. 1% lidocaine was used for local anesthesia. The pulse was located and a needle was advanced into the artery. A 20 gauge, 12 cm catheter was advanced into the artery using a modified Seldinger technique. The catheter was sutured to the skin and a sterile dressing was applied. The catheter was connected to a pressure transducer and an arterial waveform was noted. There were no immediate complications noted. There was minimal EBL. I personally performed the procedure. John Palafox MD Sep 07, 2017 10:25
--- NOTE | 2017-09-07 10:28 | PD.PROCEDR ---
Procedure Note Procedure Procedure: Diagnostic and therapeutic Fiberoptic Bronchoscopy Diagnosis: Respiratory arrest Indications: Arrest with evidence in the endotracheal tube of significant mucus plugging disease. Need for emergent bronchoscopy to ensure patent main airways Consent: Emergent Anesthesia: Versed 5 mg IV, Rocuronium 50 mg IV Description of the Procedure: The patient was sedated and mechanically ventilated. The patient was placed on 100% FIO2 and a volume control mode of ventilation. The fiberoptic bronchoscopy was inserted via 8.0 oral endotracheal tube. The trachea, right and left mainstem bronchi, and sub- segmental bronchi were evaluated. The endobronchial anatomy was normal. Findings: Moderate amount of thick tenacious secretions in the endotracheal tube. Minimal additional secretions further down in the airways. Evidence of small amount of trauma in the right mainstem bronchus with erythematous area of bronchus. BAL samples: No samples were sent. Patient was too unstable postarrest to safely collect samples. Patient was recently postarrest. Patient tolerated the procedure adequately with no significant hemodynamic instability. Patient remained hypoxic before during and after the emergent bronchoscopy. There were no immediate complications noted. There was minimal EBL. I personally performed the procedure. John Palafox MD Sep 07, 2017 10:28
--- NOTE | 2017-09-07 10:44 | RADRPT ---
EXAM DATE/TIME: 09/07/2017 09:51 [facility] COMPARISON: CHEST SINGLE AP, September 04, 2017, 10:38. INDICATIONS : Shortness of breath MEDICAL HISTORY : Chronic obstructive pulmonary disease SURGICAL HISTORY : Cholecystectomy. Hernia ENCOUNTER: Initial ACUITY: 1 day PAIN SCORE: Non-responsive. LOCATION: Bilateral chest FINDINGS: The endotracheal tube has its tip 4 cm above the deyanira. The nasogastric tube has its tip below the d iaphragm. The heart is stable. There is improved aeration of the lung bases compared to the previous evaluation. No significant residual infiltrate is noted. CONCLUSION: Improved aeration of the lung bases with no residual infiltrate noted. Gerard Balderas MD on September 07, 2017 at 10:41 Board Certified Radiologist. This report was verified electronically.
[2017-09-07] MEDS: MIDAZOLAM 100 MG/NS 100 ML DRIP Premix IV PRN (12:00)
[2017-09-07] MEDS: POTASSIUM CHLOR 20 MEQ PREMIX 100 ML IV PRN ×2 (18:24→20:46)
[2017-09-07 20:14] LABS: BLOOD, URINE NEG (NEG); COMMENT (UR) CATH-CULT NOT IND; CULTURE IF INDICATED CATH CULTURE NOT IND; GLUCOSE,URINE NEG (NEG); KETONE, URINE NEG (NEG); MUCUS URINE FEW /lpf (OCC); NITRITE,URINE NEG (NEG); PH, URINE 7.5 (5.0-8.5); URINE COLOR COLORLESS (YELLW/STRAW)
[2017-09-07] MEDS: ENOXAPARIN SODIUM 40 MG/0.4 ML SYRINGE SQ SCH (20:22)
[2017-09-07] MEDS: LEVOFLOXACIN 750 MG PREMIX INJ 150 ML IV SCH (20:23)
[2017-09-08] VITALS (22 sets, daily range): BP systolic 96–168; BP diastolic 56–90; PULSE 68–112; RESP 13–25; TEMP 97.8–98.8; O2SAT 97–100
[2017-09-08] MEDS: FUROSEMIDE 40 MG/4 ML VIAL IV PUSH SCH ×3 (01:59→16:58)
[2017-09-08] MEDS: CHLORHEXIDINE GLUCONATE 2 % 1 PACK (2 CLOTHS) TOP SCH (04:00)
[2017-09-08 04:59] LABS: HEMATOCRIT 37.2 % (35.0-46.0); MEAN CELL VOLUME 92.3 FL (80.0-100.0); MEAN CORPUSCULAR HEMOGLOBIN 30.6 PG (27.0-34.0); MEAN CORPUSCULAR HGB CONC 33.2 % (32.0-36.0); PLATELET COUNT 449 TH/MM3 (150-450); RED BLOOD COUNT 4.03 MIL/MM3 (4.00-5.30); RED CELL DISTRIBUTION WIDTH 16.5 % (11.6-17.2); REVIEW FLAG FINAL; WHITE BLOOD COUNT 13.4 TH/MM3 (4.0-11.0)
[2017-09-08] MEDS: methylPREDNISolone SOD SUCC 125 MG/2 ML VIAL IV PUSH SCH ×3 (05:15→20:18)
[2017-09-08 05:17] LABS: BICARBONATE 28.4 MEQ/L (21.0-32.0); POTASSIUM 3.9 MEQ/L (3.5-5.1)
[2017-09-08] MEDS: CHLORHEXIDINE 0.12% (ORAL KIT) 15 ML CUP MT SCH ×2 (08:00→20:00)
[2017-09-08] MEDS: SODIUM CHLORIDE 0.9% FLUSH 10 ML FLUSH IV FLUSH SCH ×2 (08:31→20:19)
[2017-09-08] MEDS: BUDESONIDE-FORMOTEROL 160/4.5 MCG INHALER INH SCH ×2 (08:31→20:19)
[2017-09-08] MEDS: ATENOLOL 25 MG TAB PO SCH (08:32)
[2017-09-08] MEDS: DOCUSATE SODIUM 50 MG/SENNA 8.6 MG TAB PO SCH ×2 (08:32→20:19)
[2017-09-08] MEDS: FAMOTIDINE 20 MG/2 ML VIAL IV PUSH SCH ×2 (08:32→20:18)
--- NOTE | 2017-09-08 11:00 | EKG ---
Date Performed: 09/07/2017 Time Performed: 13:03:06 PTAGE: 71 years EKG: Sinus rhythm with PACs, Poor R wave progression - probable normal variant, Low QRS voltages in precordial leads B orderline ECG PREVIOUS TRACING : 09/02/2017 17.53 Compared to previous tracing, nonspecific inferior and late ral T wave abnormality has resolved. DOCTOR: Stefan Ascencio Interpretating Date/Time 09/08/2017 10:58:46
--- NOTE | 2017-09-08 14:34 | HHI.CCPN ---
Subjective Remarks/Hospital Course 71-year-old female came to the emergency room with history of shortness of breath that's progressively worsening. Patient is from a residential. She has history of COPD and is progressively worsening for unknown amount of time. By the time she arrived to emergency department she became unresponsive. She was intubated by ED attending for an airway protection and severe hypoxemia. 09/03 Patient remains sedated and intubated. 09/04 Patient was extubated yesterday and was on 3L oxygen with good sats. Afebrile. She became diaphoretic, tachypneic, tachycardic and using her accessory muscle for resp. she was subsequently intubated and placed on mechanical ventilation. 09/05 Patient is intubated and on Versed and Fentanyl drips for sedation however she is awake. afebrile. 09/06 Patient remains sedated and intubated. Afebrile. 09/07: patient awake, remains intubated. repeat blood cultures + for GPCs. will obtain TTE to rule out endocarditis in the setting of persistently positive blood cultures with GPCs. also grossly volume overloaded. will diurese today. 09/08: clinically improving after hypoxic arrest yesterday. following commands. still volume overloaded. failed SBT for tachypnea and elevated PEEP. weaning fio2. Objective Vital Signs Date Time Temp Pulse Resp B/P (MAP) Pulse Ox O2 Delivery O2 Flow Rate FiO2 09/08/17 14:00 97 09/08/17 13:23 99 40 09/08/17 12:00 98.8 24 146/71 (96) 09/04/17 20:48 Ventilator 09/04/17 08:48 3.00 Intake and Output 09/08/17 09/08/17 09/09/17 08:00 16:00 00:00 Intake Total 656 ml Output Total 2450 ml Balance -1794 ml Result Diagram: 09/08/17 0440 09/08/17 0440 Imaging Last Impressions Chest X-Ray 09/04/17 0000 Signed Impressions: Service Date/Time: Monday, September 04, 2017 10:38 - CONCLUSION: Adequate placement of endotracheal tube. Sergio Jarrett MD Head CT 09/02/17 1812 Signed Impressions: Service Date/Time: Saturday, September 02, 2017 21:24 - CONCLUSION: Normal examination for a patient of this age. Aaron Henry MD CT Angiography 09/02/17 0000 Signed Impressions: Service Date/Time: Saturday, September 02, 2017 21:27 - CONCLUSION: 1. Negative for pulmonary embolus. 2. Small to moderate bilateral pleural effusions with compressive atelectasis in the lungs. Mild interstitial edema pattern. Aaron Henry MD Objective Remarks GENERAL: middle-aged female, lying in bed, intubated. awake. HEAD: Atraumatic. Normocephalic. EYES: Pupils equal and round. No scleral icterus. No injection or drainage. ENT: No nasal bleeding or discharge. Mucous membranes pink and moist. NECK: Trachea midline. slight JVD. CARDIOVASCULAR: Regular rate and rhythm. RESPIRATORY: equal chest rise. on full PRVC support this morning. fio2 50%. peep 10 GASTROINTESTINAL: Abdomen soft, non-tender, nondistended. MUSCULOSKELETAL: No obvious deformities. No clubbing. No cyanosis. trace edema. NEUROLOGICAL: RASS -2. CAM-. follows commands. A/P Assessment and Plan Assessment: 71yF with COPD and recurrent respiratory failure requiring re- intubation and failing SBTs for extubation. s/p acute hypoxic arrest 09/07 likely from mucous plugging. now back following commands and weaning vent again. will continue SBTs daily. will pursue forced diuresis again today. still highly complex and off pathway, remains with persistent respiratory failure not responsive to conservative measures. Plan Neuro: continue versed/fentanyl goal RASS -2. continue daily sedation vacations. Pulm: Acute hypoxic and hypercarbic respiratory failure- persistent Respiratory PEA arrest 09/07 secondary to mucous plugging extubated 09/03 reintubated 09/04 Continue with vent support keep sat >88% daily SBTs Bronchodilators, ICU vent bundle. On Solumedrol 60mg Q8 wean peep to 8 today. CV: Hypertension Monitor HR and BP keep MAP>65mmHG On Atenolol 12.5mg daily : replaced garza 09/07 in the setting of respiratory arrest. keep garza today, then plan to d/c tomorrow. Monitor renal function electrolytes replacement as needed. GI: Acute protein calorie malnutrition - moderate On tube feeds Glucerna 1.5 with goal rate 45ml/hr On Pepcid for GI prophylaxis ID: Coag negative staph bacteremia- persistent Urinary tract infection 2d echo to rule out endocarditis: pending. Continue Levaquin and Vancomycin. Full 7 day course of levaquin to end 09/08. continue vancomycin for full 14 days for MRSA repeat blood cultures 09/07 NGTD. Heme: Monitor CBC Endo: hyperglycemia of critical illness SSI to maintain Euglycemia GI prophylaxis- on Pepcid DVT prophylaxis- On Lovenox daily Dispo: remain in the ICU. highly complex and off pathway. John Palafox MD Sep 08, 2017 14:34
[2017-09-08] MEDS ORDERED: PHARMACY ORDERED LAB ONE (14:45)
[2017-09-08] MEDS: VANCOMYCIN 1,000 MG/NS 250 ML IV SCH ×2 (14:46)
[2017-09-08] MEDS: MIDAZOLAM 100 MG/NS 100 ML DRIP Premix IV PRN (17:51)
[2017-09-08] MEDS: LEVOFLOXACIN 750 MG PREMIX INJ 150 ML IV SCH (20:18)
[2017-09-08] MEDS: ENOXAPARIN SODIUM 40 MG/0.4 ML SYRINGE SQ SCH (20:18)
[2017-09-08] MEDS: fentaNYL DRIP 250 ML IV PRN (23:37)
[2017-09-09] VITALS (17 sets, daily range): BP systolic 87–169; BP diastolic 41–90; PULSE 48–119; RESP 24–43; TEMP 97.1–98.7; O2SAT 98–100
[2017-09-09] MEDS: FUROSEMIDE 40 MG/4 ML VIAL IV PUSH SCH ×3 (01:43→18:33)
[2017-09-09] MEDS: CHLORHEXIDINE GLUCONATE 2 % 1 PACK (2 CLOTHS) TOP SCH (04:00)
[2017-09-09 05:09] LABS: HEMATOCRIT 39.9 % (35.0-46.0); MEAN CELL VOLUME 91.7 FL (80.0-100.0); MEAN CORPUSCULAR HEMOGLOBIN 30.9 PG (27.0-34.0); MEAN CORPUSCULAR HGB CONC 33.7 % (32.0-36.0); PLATELET COUNT 391 TH/MM3 (150-450); RED BLOOD COUNT 4.35 MIL/MM3 (4.00-5.30); RED CELL DISTRIBUTION WIDTH 16.6 % (11.6-17.2); REVIEW FLAG FINAL; WHITE BLOOD COUNT 12.8 TH/MM3 (4.0-11.0)
[2017-09-09 05:42] LABS: BICARBONATE 34.4 MEQ/L (21.0-32.0); POTASSIUM 3.2 MEQ/L (3.5-5.1)
[2017-09-09] MEDS: methylPREDNISolone SOD SUCC 125 MG/2 ML VIAL IV PUSH SCH ×3 (06:11→20:48)
[2017-09-09] MEDS: POTASSIUM CHLOR 20 MEQ PREMIX 100 ML IV PRN ×4 (06:48→13:50)
[2017-09-09] MEDS: DOCUSATE SODIUM 50 MG/SENNA 8.6 MG TAB PO SCH ×2 (08:55→20:47)
[2017-09-09] MEDS: ATENOLOL 25 MG TAB PO SCH (08:55)
[2017-09-09] MEDS: VANCOMYCIN 1,000 MG/NS 250 ML IV SCH ×2 (08:55)
[2017-09-09] MEDS: FAMOTIDINE 20 MG/2 ML VIAL IV PUSH SCH ×2 (08:55→20:47)
[2017-09-09] MEDS: CHLORHEXIDINE 0.12% (ORAL KIT) 15 ML CUP MT SCH ×2 (08:56→20:53)
[2017-09-09] MEDS: SODIUM CHLORIDE 0.9% FLUSH 10 ML FLUSH IV FLUSH SCH ×2 (08:56→20:45)
[2017-09-09] MEDS: BUDESONIDE-FORMOTEROL 160/4.5 MCG INHALER INH SCH ×2 (08:57→20:45)
[2017-09-09] MEDS: fentaNYL DRIP 250 ML IV PRN (15:36)
--- NOTE | 2017-09-09 16:12 | HHI.CCPN ---
Subjective Remarks/Hospital Course 71-year-old female came to the emergency room with history of shortness of breath that's progressively worsening. Patient is from a longterm. She has history of COPD and is progressively worsening for unknown amount of time. By the time she arrived to emergency department she became unresponsive. She was intubated by ED attending for an airway protection and severe hypoxemia. 09/03 Patient remains sedated and intubated. 09/04 Patient was extubated yesterday and was on 3L oxygen with good sats. Afebrile. She became diaphoretic, tachypneic, tachycardic and using her accessory muscle for resp. she was subsequently intubated and placed on mechanical ventilation. 09/05 Patient is intubated and on Versed and Fentanyl drips for sedation however she is awake. afebrile. 09/06 Patient remains sedated and intubated. Afebrile. 09/07: patient awake, remains intubated. repeat blood cultures + for GPCs. will obtain TTE to rule out endocarditis in the setting of persistently positive blood cultures with GPCs. also grossly volume overloaded. will diurese today. 09/08: clinically improving after hypoxic arrest yesterday. following commands. still volume overloaded. failed SBT for tachypnea and elevated PEEP. weaning fio2. 09/09: tolerating CPAP, but with too much support to safely extubate today. still following commands. good diuresis overnight. Objective Vital Signs Date Time Temp Pulse Resp B/P (MAP) Pulse Ox O2 Delivery O2 Flow Rate FiO2 09/09/17 14:43 100 35 09/09/17 12:00 97.7 58 43 157/66 (96) Intake and Output 09/09/17 09/09/17 09/10/17 08:00 16:00 00:00 Intake Total 549 ml Output Total 2150 ml Balance -1601 ml Result Diagram: 09/09/17 0428 09/09/17 0408 Imaging Last Impressions Chest X-Ray 09/04/17 0000 Signed Impressions: Service Date/Time: Monday, September 04, 2017 10:38 - CONCLUSION: Adequate placement of endotracheal tube. Sergio Jarrett MD Head CT 09/02/17 1812 Signed Impressions: Service Date/Time: Saturday, September 02, 2017 21:24 - CONCLUSION: Normal examination for a patient of this age. Aaron Henry MD CT Angiography 09/02/17 0000 Signed Impressions: Service Date/Time: Saturday, September 02, 2017 21:27 - CONCLUSION: 1. Negative for pulmonary embolus. 2. Small to moderate bilateral pleural effusions with compressive atelectasis in the lungs. Mild interstitial edema pattern. Aaron Henry MD Objective Remarks GENERAL: middle-aged female, lying in bed, intubated. awake. HEAD: Atraumatic. Normocephalic. EYES: Pupils equal and round. No scleral icterus. No injection or drainage. ENT: No nasal bleeding or discharge. Mucous membranes pink and moist. NECK: Trachea midline. slight JVD. CARDIOVASCULAR: Regular rate and rhythm. RESPIRATORY: equal chest rise. on PSV. PS 12. fio2 40%. peep 8 GASTROINTESTINAL: Abdomen soft, non-tender, nondistended. MUSCULOSKELETAL: No obvious deformities. No clubbing. No cyanosis. trace edema. NEUROLOGICAL: RASS -1. CAM-. follows commands. A/P Assessment and Plan Assessment: 71yF with COPD and recurrent respiratory failure requiring re- intubation and failing SBTs for extubation. s/p acute hypoxic arrest 09/07 likely from mucous plugging. now back following commands and weaning vent again. will continue SBTs daily. will pursue forced diuresis again today. still highly complex and off pathway, remains with persistent respiratory failure not responsive to conservative measures. Plan Neuro: continue versed/fentanyl goal RASS -2. continue daily sedation vacations. Pulm: Acute hypoxic and hypercarbic respiratory failure- persistent Respiratory PEA arrest 09/07 secondary to mucous plugging extubated 09/03 reintubated 09/04 Continue with vent support keep sat >88% daily SBTs Bronchodilators, ICU vent bundle. On Solumedrol 60mg Q8 wean peep to 5 today. CV: Hypertension Monitor HR and BP keep MAP>65mmHG On Atenolol 12.5mg daily : replaced garza 09/07 in the setting of respiratory arrest. keep garza today for active diuresis. Monitor renal function electrolytes replacement as needed. GI: Acute protein calorie malnutrition - moderate On tube feeds Glucerna 1.5 with goal rate 45ml/hr On Pepcid for GI prophylaxis ID: Coag negative staph bacteremia- persistent Urinary tract infection 2d echo to rule out endocarditis: pending. Continue Vancomycin. Full 7 day course of levaquin to end 09/08. continue vancomycin for full 14 days for MRSA repeat blood cultures 09/07 NGTD. Heme: Monitor CBC Endo: hyperglycemia of critical illness SSI to maintain Euglycemia GI prophylaxis- on Pepcid DVT prophylaxis- On Lovenox daily Dispo: remain in the ICU. highly complex and off pathway. John Palafox MD Sep 09, 2017 16:12
[2017-09-09] MEDS ORDERED: PROPOFOL 500 MG/50 ML INJ 50 ML IV ONE (16:30)
[2017-09-09] MEDS ORDERED: PROPOFOL 500 MG/50 ML INJ 50 ML ONE (18:03)
[2017-09-09] MEDS: ENOXAPARIN SODIUM 40 MG/0.4 ML SYRINGE SQ SCH (20:44)
[2017-09-09] MEDS: MIDAZOLAM 100 MG/NS 100 ML DRIP Premix IV PRN (23:44)
[2017-09-10] VITALS (31 sets, daily range): BP systolic 91–166; BP diastolic 52–111; PULSE 47–83; RESP 8–26; TEMP 97.5–98.4; O2SAT 85–100
[2017-09-10] MEDS: FUROSEMIDE 40 MG/4 ML VIAL IV PUSH SCH ×2 (01:00→08:38)
[2017-09-10] MEDS: VANCOMYCIN 1,000 MG/NS 250 ML IV SCH ×2 (03:00)
[2017-09-10] MEDS: CHLORHEXIDINE GLUCONATE 2 % 1 PACK (2 CLOTHS) TOP SCH (04:00)
[2017-09-10] MEDS: methylPREDNISolone SOD SUCC 125 MG/2 ML VIAL IV PUSH SCH (05:38)
[2017-09-10 07:07] LABS: HEMATOCRIT 37.6 % (35.0-46.0); MEAN CELL VOLUME 92.4 FL (80.0-100.0); MEAN CORPUSCULAR HEMOGLOBIN 30.9 PG (27.0-34.0); MEAN CORPUSCULAR HGB CONC 33.4 % (32.0-36.0); PLATELET COUNT 412 TH/MM3 (150-450); RED BLOOD COUNT 4.07 MIL/MM3 (4.00-5.30); RED CELL DISTRIBUTION WIDTH 16.4 % (11.6-17.2); REVIEW FLAG FINAL
[2017-09-10 07:23] LABS: BICARBONATE 30.5 MEQ/L (21.0-32.0); POTASSIUM 3.6 MEQ/L (3.5-5.1)
[2017-09-10] MEDS: CHLORHEXIDINE 0.12% (ORAL KIT) 15 ML CUP MT SCH ×2 (08:37→20:00)
[2017-09-10] MEDS: ATENOLOL 25 MG TAB PO SCH (08:38)
[2017-09-10] MEDS: DOCUSATE SODIUM 50 MG/SENNA 8.6 MG TAB PO SCH ×2 (08:38→21:00)
[2017-09-10] MEDS: FLUoxetine HCL 10 MG CAP PO SCH (08:38)
[2017-09-10] MEDS: FAMOTIDINE 20 MG/2 ML VIAL IV PUSH SCH (08:38)
[2017-09-10] MEDS: SODIUM CHLORIDE 0.9% FLUSH 10 ML FLUSH IV FLUSH SCH ×2 (08:39→21:00)
[2017-09-10] MEDS: BUDESONIDE-FORMOTEROL 160/4.5 MCG INHALER INH SCH ×2 (08:39→21:00)
[2017-09-10 10:07] LABS: BLOOD GAS BASE EXCESS 6.6 mmol/L (-2-2); BLOOD GAS CARBOXYHEMOGLOBIN 0.7 % (0-4); BLOOD GAS HCO3 31 mmol/L (22-26); BLOOD GAS METHEMOGLOBIN 1.3 % (0-2); BLOOD GAS O2 HGB SATURATION 96 % (90-100); BLOOD GAS PCO2 45 mmHg (38-42); BLOOD GAS PO2 115 mmHg (61-120); BLOOD GAS TOTAL HGB 13.2 G/DL (12.0-16.0); CRITICAL VALUE NO; OXYGEN DEVICE VENT; TEMP CORR TO 98.6
[2017-09-10 10:08] LABS: DRAW SITE RT RADIAL; FIO2 35 %; NUMBER OF ARTERIAL PUNCTURES 1; STAT NO; ULNAR PULSE PRESENT
--- NOTE | 2017-09-10 12:29 | ECHRPT ---
Indication: sepsis CONCLUSIONS Very technically difficult study. In limited views, the overall left ventricular function appears grossly normal. Overall difficult study to determine anything clinically. BP: 125 / 64 HR: 103 Rhythm: Sinus MEASUREMENTS (Male / Female) Normal Values Technical Quality:Very technically difficult study 2D ECHO LV Diastolic Diameter PLAX 4.3 cm 4.2 - 5.9 / 3.9 - 5.3 cm LV Systolic Diameter PLAX 3.1 cm IVS Diastolic Thickness 1.1 cm 0.6 - 1.0 / 0.6 - 0.9 cm LVPW Diastolic Thickness 1.1 cm 0.6 - 1.0 / 0.6 - 0.9 cm LV Relative Wall Thickness 0.5 LVOT Diameter 1.6 cm LA Systolic Diameter LX 4.0 cm 3.0 - 4.0 / 2.7 - 3.8 cm M-MODE Aortic Root Diameter MM 2.6 cm AV Cusp Separation MM 1.7 cm DOPPLER AV Peak Velocity 133.0 cm/s AV Peak Gradient 7.1 mmHg AI Peak Velocity 56.8 cm/s AI Peak Gradient 1.3 mmHg AI Pressure Half Time 158.0 ms LVOT Peak Velocity 70.1 cm/s LVOT Peak Gradient 2.0 mmHg AV Area Cont Eq pk 1.1 cm MV Area PHT 1.4 cm Mitral E Point Velocity 56.8 cm/s Mitral A Point Velocity 63.2 cm/s Mitral E to A Ratio 0.9 FINDINGS LEFT VENTRICLE In limited views, the overall left ventricular function appears grossly normal. There was limited left ventricular wall motion assessment due to poor endocardial visualization. RIGHT VENTRICLE Overall appears grossly normal. LEFT ATRIUM The left atrial size is normal. RIGHT ATRIUM The right atrium is not well visualized. ATRIAL SEPTUM The interatrial septum not well visualized. AORTA The aortic root and proximal ascending aorta are not well visualized. MITRAL VALVE Grossly normal mitral valve. No mitral stenosis noted. No significant mitral regurgitation noted. AORTIC VALVE The aortic valve is not well visualized. TRICUSPID VALVE Tricuspid valve is grossly normal. No tricuspid stenosis noted. No significant mitral regurgitation noted PULMONARY VALVE The pulmonary valve is not well visualized. PERICARDIUM No pericardial effusion. Brian Molina DO (Electronically Signed) Final Date:10 September 2017 12:28
--- NOTE | 2017-09-10 15:36 | HHI.CCPN ---
Subjective Remarks/Hospital Course 71-year-old female came to the emergency room with history of shortness of breath that's progressively worsening. Patient is from a intermediate. She has history of COPD and is progressively worsening for unknown amount of time. By the time she arrived to emergency department she became unresponsive. She was intubated by ED attending for an airway protection and severe hypoxemia. 09/03 Patient remains sedated and intubated. 09/04 Patient was extubated yesterday and was on 3L oxygen with good sats. Afebrile. She became diaphoretic, tachypneic, tachycardic and using her accessory muscle for resp. she was subsequently intubated and placed on mechanical ventilation. 09/05 Patient is intubated and on Versed and Fentanyl drips for sedation however she is awake. afebrile. 09/06 Patient remains sedated and intubated. Afebrile. 09/07: patient awake, remains intubated. repeat blood cultures + for GPCs. will obtain TTE to rule out endocarditis in the setting of persistently positive blood cultures with GPCs. also grossly volume overloaded. will diurese today. 09/08: clinically improving after hypoxic arrest yesterday. following commands. still volume overloaded. failed SBT for tachypnea and elevated PEEP. weaning fio2. 09/09: tolerating CPAP, but with too much support to safely extubate today. still following commands. good diuresis overnight. 09/10: extubated today after passing SBT. doing well. denies complaints. good diuresis. echo without evidence of endocarditis, but 2 staph hominis blood cultures serially: when more stable from a respiratory standpoint, would likely need DANILO to rule out endocarditis as a cause. Objective Vital Signs Date Time Temp Pulse Resp B/P (MAP) Pulse Ox O2 Delivery O2 Flow Rate FiO2 09/10/17 14:01 53 15 166/61 (96) 90 09/10/17 12:00 97.6 09/10/17 11:08 Mask 10 09/10/17 08:23 35 Intake and Output 09/10/17 09/10/17 09/11/17 08:00 16:00 00:00 Intake Total 920 ml 141 ml Output Total 1550 ml 1000 ml Balance -630 ml -859 ml Result Diagram: 09/10/17 0637 09/10/17 0637 Other Results Laboratory Tests Test 09/10/17 10:00 Blood Gas Puncture Site RT RADIAL Blood Gas Patient Temperature 98.6 Blood Gas HCO3 31 mmol/L (22-26) Blood Gas Base Excess 6.6 mmol/L (-2-2) Blood Gas Oxygen Saturation 96 % (90-100) Arterial Blood pH 7.45 (7.380-7.420) Arterial Blood Partial Pressure CO2 45 mmHg (38-42) Arterial Blood Partial Pressure O2 115 mmHg (61-120) Arterial Blood Oxygen Content 18.0 Vol % (12.0-20.0) Arterial Blood Carboxyhemoglobin 0.7 % (0-4) Arterial Blood Methemoglobin 1.3 % (0-2) Blood Gas Hemoglobin 13.2 G/DL (12.0-16.0) Oxygen Delivery Device VENT Blood Gas Ventilator Setting CPAP /01/25/35 Blood Gas Inspired Oxygen 35 % Imaging Last Impressions Chest X-Ray 09/04/17 0000 Signed Impressions: Service Date/Time: Monday, September 04, 2017 10:38 - CONCLUSION: Adequate placement of endotracheal tube. Sergio Jarrett MD Head CT [id number]/02/[id number] Signed Impressions: Service Date/Time: Saturday, September 02, 2017 21:24 - CONCLUSION: Normal examination for a patient of this age. Aaron Henry MD CT Angiography 09/02/17 0000 Signed Impressions: Service Date/Time: Saturday, September 02, 2017 21:27 - CONCLUSION: 1. Negative for pulmonary embolus. 2. Small to moderate bilateral pleural effusions with compressive atelectasis in the lungs. Mild interstitial edema pattern. Aaron Henry MD Objective Remarks GENERAL: middle-aged female, lying in bed, no acute distress, face mask o2. HEAD: Atraumatic. Normocephalic. EYES: Pupils equal and round. No scleral icterus. No injection or drainage. ENT: No nasal bleeding or discharge. Mucous membranes pink and moist. NECK: Trachea midline. slight JVD. CARDIOVASCULAR: Regular rate and rhythm. RESPIRATORY: equal chest rise. face mask o2. unlabored. GASTROINTESTINAL: Abdomen soft, non-tender, nondistended. MUSCULOSKELETAL: No obvious deformities. No clubbing. No cyanosis. trace edema. NEUROLOGICAL: RASS 0. CAM-. follows commands. A/P Assessment and Plan Assessment: 71yF with COPD and recurrent respiratory failure requiring re- intubation, now extubated and clinically improving. s/p acute hypoxic arrest likely from mucous plugging. now back following commands and weaning vent again. will continue SBTs daily. advance diet after nursing bedside assessment. PT consult, OOB. wean o2 as tolerated. aggressive pulmonary toilet. Plan Neuro: goal RASS 0 avoid long-acting sedating meds. Pulm: Acute hypoxic and hypercarbic respiratory failure- improving. Respiratory PEA arrest 09/07 secondary to mucous plugging extubated 09/03 reintubated 09/04 Continue with vent support keep sat >88% d/c solumedrol today and start prednisone taper. CV: Hypertension Monitor HR and BP keep MAP>65mmHG On Atenolol 12.5mg daily : d/c garza. Monitor renal function electrolytes replacement as needed. GI: Acute protein calorie malnutrition - moderate advance diet after nursing bedside evaluation. On Pepcid for GI prophylaxis ID: Coag negative staph bacteremia- persistent Urinary tract infection 2d echo to rule out endocarditis: limited study. will likely need DANILO when more stable from a respiratory standpoint. s/p full 7 day course of levaquin. Continue Vancomycin for full 14 days after 1st negative blood culture for MRSA bacteremia consult ID to follow along. repeat blood cultures 09/07 NGTD. Heme: Monitor CBC Endo: hyperglycemia of critical illness SSI to maintain Euglycemia GI prophylaxis- on Pepcid DVT prophylaxis- On Lovenox daily Dispo: if continues to improve, could transition out of ICU today or tomorrow. John Palafox MD Sep 10, 2017 15:36
--- NOTE | 2017-09-10 18:03 | MB ---
cc: NATY JOY MD DATE OF CONSULTATION 09/10/[address] Gilliam REASON FOR CONSULTATION A 71-year-old white female with two sets of positive blood cultures for MRSA. Limited echo, going to the floor. Please follow along for duration of therapy. HISTORY OF PRESENT ILLNESS This is a 71-year white female who was admitted to the hospital on 09/02 with respiratory distress. The patient is from a group home. She has a history of COPD. She was having worsening shortness of breath and, when she arrived at the emergency department, was noted to be unresponsive. The patient was intubated in the emergency department and admitted to the intensive care unit for respiratory failure. She was felt to likely have acute COPD exacerbation versus pneumonia. Blood cultures from 09/02 had two different staph coagulase negative in one set and the second set was negative. CT angiogram was performed and it was negative for pulmonary embolism. There was noted to be compressive atelectasis in the lungs and mild interstitial edema. The white blood cell count was 12.9. The patient was extubated on 09/04 and then she became tachycardiac and tachypneic and was reintubated that same day. Following that, on 09/07 she had an episode of bradycardia and PEA arrest. She was noted to have significant mucus plugging as well. She remained on the ventilator until today when she was extubated again. She is currently on oxygen by face mask. The patient had repeated blood culture on 09/04 that had 1/4 bottles showing staph hominis. Repeated blood culture from 09/07 has no growth in three days. She denies chest pain, chills or abdominal pain. PAST MEDICAL HISTORY 1. COPD. 2. Bipolar disorder ALLERGIES PENICILLIN PREDNISONE QUE MEDICATIONS 1. Prozac. 2. Magnesium oxide. 3. Vancomycin 4. Tenormin 5. Symbicort 6. Tierra-Colace. 7. Lovenox. SOCIAL HISTORY No tobacco, alcohol or illicit drugs. FAMILY HISTORY Noncontributory. REVIEW OF SYSTEMS Difficult to obtain at this time, but the patient denies any significant systems review questions. PHYSICAL EXAMINATION GENERAL: This is a slender frail cachectic-appearing female who is in no acute distress. VITAL SIGNS: Temperature 97.6, BP 166/61, respirations 15, heart rate 53. HEENT: Head is atraumatic. Bitemporal wasting. Extraocular movements grossly intact. Pupils reactive to light. No icterus. Oropharynx moist mucosa. NECK: Supple without adenopathy. LUNGS: Basilar rhonchi. HEART: Regular S1 and S2. No audible murmurs, rubs or gallops. ABDOMEN: Bowel sounds present, diminished, however, soft, no tenderness appreciated. RECTAL: Not performed. EXTREMITIES: Diffuse muscle wasting. Diffuse ecchymosis of the upper and lower extremities. No edema. SKIN: No diffuse rash. NEUROLOGIC: No gross focal findings. PSYCHIATRIC: The patient calm and cooperative. LABORATORY DATA WBC 14.0, platelets 412, hemoglobin 12.6, creatinine 0.73, BUN 53, sodium 142, estimated GFR 79. IMPRESSION Positive blood cultures for staph hominis in separate cultures with a one bottle of a set of four showing bacteria and subsequent blood cultures negative from 09/07. The patient has been without fever, although she has had elevated white blood cell count. She has no known history of IV drug abuse. Currently, she is on intravenous vancomycin for the bacteremia. Echocardiogram without report of valve abnormality of the heart. Status post red respiratory failure and pulseless electrical association arrest. Reviewing the patient's hospital course and the culture results, I think that the positive blood culture is very likely contamination rather than true infection. I doubt this patient has endocarditis. She reportedly had left lower lobe consolidation on chest x-ray on September 03 and the repeat chest x-ray shows no residual infiltrates. The patient was also noted to have mucous plugging as well which may have been part cause of her respiratory problems. At this point, I feel confident stopping the IV vancomycin and Monitoring this patient. RECOMMENDATIONS 1. Discontinue vancomycin. 2. Monitor the patient's clinical status. I do not think she needs antibiotic coverage for pneumonia, since the last chest x-ray shows improvement in the chest x-ray. Thank you for this consultation. I will follow the patient's progress and make further recommendations on followup if necessary. If she remains afebrile and her respiratory status remains stable, I see no issues with discharging her from the hospital. Naty Joy MD FD/ /4:56 PM /5:41 PM
[2017-09-10] MEDS ORDERED: PHARMACY ORDERED LAB ONE (20:45)
[2017-09-10] MEDS: ENOXAPARIN SODIUM 40 MG/0.4 ML SYRINGE SQ SCH (21:32)
[2017-09-10] MEDS: FAMOTIDINE 20 MG TAB PO SCH (21:33)
[2017-09-11] VITALS (11 sets, daily range): BP systolic 126–155; BP diastolic 45–81; PULSE 48–87; RESP 14–27; TEMP 97.6–98.7; O2SAT 86–100
[2017-09-11] MEDS: CHLORHEXIDINE GLUCONATE 2 % 1 PACK (2 CLOTHS) TOP SCH (04:00)
[2017-09-11 05:39] LABS: HEMATOCRIT 39.9 % (35.0-46.0); MEAN CELL VOLUME 93.4 FL (80.0-100.0); MEAN CORPUSCULAR HEMOGLOBIN 29.9 PG (27.0-34.0); PLATELET COUNT 363 TH/MM3 (150-450); RED BLOOD COUNT 4.27 MIL/MM3 (4.00-5.30); RED CELL DISTRIBUTION WIDTH 16.8 % (11.6-17.2); REVIEW FLAG FINAL; WHITE BLOOD COUNT 12.3 TH/MM3 (4.0-11.0)
[2017-09-11 06:03] LABS: BICARBONATE 31.9 MEQ/L (21.0-32.0)
[2017-09-11 06:10] LABS: POTASSIUM 2.9 MEQ/L (3.5-5.1)
[2017-09-11] MEDS: POTASSIUM CHLOR 20 MEQ PREMIX 100 ML IV PRN (06:19)
[2017-09-11] MEDS ORDERED: POTASSIUM BICARBONATE 25 MEQ EFFERVESCENT TAB PO ONE (07:30)
[2017-09-11] MEDS: CHLORHEXIDINE 0.12% (ORAL KIT) 15 ML CUP MT SCH (08:00)
[2017-09-11] MEDS: FAMOTIDINE 20 MG TAB PO SCH (08:11)
[2017-09-11] MEDS: DOCUSATE SODIUM 50 MG/SENNA 8.6 MG TAB PO SCH (08:11)
[2017-09-11] MEDS: ATENOLOL 25 MG TAB PO SCH (08:11)
[2017-09-11] MEDS: FLUoxetine HCL 10 MG CAP PO SCH (08:11)
[2017-09-11] MEDS: BUDESONIDE-FORMOTEROL 160/4.5 MCG INHALER INH SCH (08:11)
[2017-09-11] MEDS: SODIUM CHLORIDE 0.9% FLUSH 10 ML FLUSH IV FLUSH SCH (08:11)
[2017-09-11] MEDS ORDERED: predniSONE 10 MG TAB PO SCH (09:00)
[2017-09-11] MEDS ORDERED: ATEN25TA PO (13:14)
[2017-09-11] MEDS ORDERED: Budeson-Formot 160-4.5 Mcg Inh INH (13:14)
[2017-09-11] MEDS ORDERED: PRED10 PO (13:14)
--- NOTE | 2017-09-11 13:17 | HHI.DS ---
Discharge Summary Admission Date Sep 02, 2017 at 18:19 Admitting Diagnosis respiratory failure, COPD exacerbation Brief History 71-year-old female came to the emergency room with history of shortness of breath that's progressively worsening. Patient is from a senior care. She has history of COPD and is progressively worsening for unknown amount of time. By the time she arrived to emergency department she became unresponsive. She was intubated by ED attending for an airway protection and severe hypoxemia. CBC/BMP: 09/11/17 0445 09/11/17 0445 Significant Findings Laboratory Tests Test 09/09/17 04:08 09/09/17 04:28 09/10/17 06:37 09/10/17 10:00 Blood Urea Nitrogen 41 MG/DL (7-18) 53 MG/DL (7-18) Random Glucose 151 MG/DL (74-106) 140 MG/DL (74-106) Potassium Level 3.2 MEQ/L (3.5-5.1) Carbon Dioxide Level 34.4 MEQ/L (21.0-32.0) Estimat Glomerular Filtration Rate 78 ML/MIN (>89) 79 ML/MIN (>89) White Blood Count 12.8 TH/MM3 (4.0-11.0) 14.0 TH/MM3 (4.0-11.0) Blood Gas HCO3 31 mmol/L (22-26) Blood Gas Base Excess 6.6 mmol/L (-2-2) Arterial Blood pH 7.45 (7.380-7.420) Arterial Blood Partial Pressure CO2 45 mmHg (38-42) Test 09/10/17 22:50 09/11/17 04:45 Vancomycin Level Trough 20.6 MCG/ML (5.0-10.0) White Blood Count 12.3 TH/MM3 (4.0-11.0) Blood Urea Nitrogen 47 MG/DL (7-18) Calcium Level 8.2 MG/DL (8.5-10.1) Potassium Level 2.9 MEQ/L (3.5-5.1) Estimat Glomerular Filtration Rate 82 ML/MIN (>89) PE at Discharge gen: awake, alert, nad. heent: perrl. mmm. neck: no jvd. trachea midline chest: unlabored. equal chest rise. 3L o2 by NC (home dose) cv: normal rate, regular rhythm. sinus abd: soft, nontender, nondistended. no guarding. extr: no edema. distal pulses 2+ neuro: RASS 0. GCS 15. no focal deficits. Hospital Course 71-year-old female came to the emergency room with history of shortness of breath that's progressively worsening. Patient is from a senior care. She has history of COPD and is progressively worsening for unknown amount of time. By the time she arrived to emergency department she became unresponsive. She was intubated by ED attending for an airway protection and severe hypoxemia. 09/03 Patient remains sedated and intubated. 09/04 Patient was extubated yesterday and was on 3L oxygen with good sats. Afebrile. She became diaphoretic, tachypneic, tachycardic and using her accessory muscle for resp. she was subsequently intubated and placed on mechanical ventilation. 09/05 Patient is intubated and on Versed and Fentanyl drips for sedation however she is awake. afebrile. 09/06 Patient remains sedated and intubated. Afebrile. 09/07: patient awake, remains intubated. repeat blood cultures + for GPCs. will obtain TTE to rule out endocarditis in the setting of persistently positive blood cultures with GPCs. also grossly volume overloaded. will diurese today. 09/08: clinically improving after hypoxic arrest yesterday. following commands. still volume overloaded. failed SBT for tachypnea and elevated PEEP. weaning fio2. 09/09: tolerating CPAP, but with too much support to safely extubate today. still following commands. good diuresis overnight. 09/10: extubated today after passing SBT. doing well. denies complaints. good diuresis. echo without evidence of endocarditis, but 2 staph hominis blood cultures serially: when more stable from a respiratory standpoint, would likely need DANILO to rule out endocarditis as a cause. 09/11: on home o2. stable for discharge back to SNF. per ID, no need to continue antibiotics. Pt Condition on Discharge: Stable Discharge Disposition: Discharge to SNF Discharge Instructions DIET: Follow Instructions for: As Tolerated, No Restrictions Activities you can perform: Regular-No Restrictions John Palafox MD Sep 11, 2017 13:17
== END 2017-09-11 17:45 | DRG 207 ==
LOC: NEPE 17:39 → NEDA 18:19 → HIMN 21:50
PROVIDERS: ADMIT Internal Medicine Critical Care Medicine; ATTEND Internal Medicine Critical Care Medicine
PROC: 0BH17EZ Insertion of Endotracheal Airway into Trachea, Via Natural or Artificial Opening (ICD-10-PCS; 2017-09-02)
PROC: 5A1935Z Respiratory Ventilation, Less than 24 Consecutive Hours (ICD-10-PCS; 2017-09-02)
PROC: 5A1955Z Respiratory Ventilation, Greater than 96 Consecutive Hours (ICD-10-PCS; principal; 2017-09-04)
PROC: 0BH17EZ Insertion of Endotracheal Airway into Trachea, Via Natural or Artificial Opening (ICD-10-PCS; 2017-09-04)
PROC: 03HY32Z Insertion of Monitoring Device into Upper Artery, Percutaneous Approach (ICD-10-PCS; 2017-09-07)
PROC: 5A12012 Performance of Cardiac Output, Single, Manual (ICD-10-PCS; 2017-09-07)
PROC: 0BJ08ZZ Inspection of Tracheobronchial Tree, Via Natural or Artificial Opening Endoscopic (ICD-10-PCS; 2017-09-07)
DX: J96.01 Acute respiratory failure with hypoxia (principal); J18.9 Pneumonia, unspecified organism; E44.0 Moderate protein-calorie malnutrition; T17.590A Other foreign object in bronchus causing asphyxiation, initial encounter; J44.0 Chronic obstructive pulmonary disease with (acute) lower respiratory infection; E87.2 Acidosis; R78.81 Bacteremia; I46.8 Cardiac arrest due to other underlying condition; J44.1 Chronic obstructive pulmonary disease with (acute) exacerbation; N39.0 Urinary tract infection, site not specified; Z68.1 Body mass index [BMI] 19.9 or less, adult; J96.02 Acute respiratory failure with hypercapnia; E87.5 Hyperkalemia; R73.9 Hyperglycemia, unspecified; I10 Essential (primary) hypertension; B95.7 Other staphylococcus as the cause of diseases classified elsewhere; E87.70 Fluid overload, unspecified; R00.0 Tachycardia, unspecified; Y95 Nosocomial condition
CPT/HCPCS: 31500; 31624; 36556; 36600; 70450; 71010; 71275; 76937; 80048; 80053; 80202; 81001; 82550; 82805; 83605; 83735; 84100; 84132; 84443; 84484; 85025; 85027; 85610; 86403; 87040; 87070; 87077; 87086; 87186; 87205; 87449; 87641; 93005; 93306; 94002; 94003; 94150; 94640; 94664; 94667; 94668; J0171; J0330; J1120; J1650; J1940; J1956; J2250; J2930; J3010; J3370; J3475; J3480; J7030; J7050; J7512; Q9967